=== PATIENT | female | born 2000 | race Caucasian/White ===

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

== ENCOUNTER 2018-11-07 02:15 | Emergency (ER) | payer BC ==
--- NOTE | 2018-11-07 02:33 | ED ---
General Adult HPI - General Source: patient, RN notes reviewed Mode of arrival: ambulatory Limitations: physical limitation <Alexys Rosales - Last Filed: 11/07/18 03:27> <Nicolette Gupta - Last Filed: 11/07/18 04:17> - General Chief complaint: Extremity Injury, Upper Stated complaint: finger injury Time Seen by Provider: 11/07/18 02:23 - History of Present Illness Initial comments: 17-year-old female presents to the emergency department for a chief complaint of right hand injury. Patient states about one hour prior to arrival she slammed her hand in a car door. Patient states she is up-to-date on tetanus. States her hand hurts most in the right second digit. Denies any other injuries.Patient has no other complaints at this time including shortness of breath, chest pain, abdominal pain, nausea or vomiting, headache, or visual changes. (Alexys Rosales) - Related Data Home Medications Medication Instructions Recorded Confirmed No Known Home Medications 10/21/16 11/07/18 Allergies Allergy/AdvReac Type Severity Reaction Status Date / Time nickel Allergy Rash/Hives Verified 11/07/18 02:22 Review of Systems ROS Other: All systems not noted in ROS Statement are negative. <Alexys Rosales - Last Filed: 11/07/18 03:27> ROS Other: All systems not noted in ROS Statement are negative. <Nicolette Gupta P - Last Filed: 11/07/18 04:17> ROS Statement: Those systems with pertinent positive or pertinent negative responses have been documented in the HPI. 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 Absent: scleral icterus, conjunctival injection, periorbital swelling ENT exam: Present: normal exam, mucous membranes moist Neck exam: Present: normal inspection, full ROM. Absent: tenderness, meningismus, lymphadenopathy Respiratory exam: Present: normal lung sounds bilaterally. Absent: respiratory distress, wheezes, rales, rhonchi, stridor Cardiovascular Exam: Present: regular rate, normal rhythm, normal heart sounds. Absent: systolic murmur, diastolic murmur, rubs, gallop, clicks Extremities exam: Present: full ROM (of all digits in the right hand), normal capillary refill (cap refill < 2 seconds, radial pulse 2+), other (laceration on dorsal right 2nd prox phalanx). Absent: tenderness, pedal edema, joint swelling, calf tenderness Neurological exam: Present: alert, oriented X3, CN II-XII intact Psychiatric exam: Present: normal affect, normal mood <Alexys Rosales P - Last Filed: 11/07/18 03:27> Course Vital Signs 11/07/18 11/07/18 02:16 03:47 Temperature 97.8 F 97.5 F L Pulse Rate 88 62 Respiratory 18 17 Rate Blood Pressure 125/88 130/89 O2 Sat by Pulse 98 98 Oximetry Procedures - Laceration Laceration #1 Consent Obtained: verbal consent Indication: laceration Site: hand Size (cm): 3 Description: flap Depth: simple, single layer Anesthetic Used: benzocaine 0.25%, lidocaine 1% Amount (mls): 3 Pre-repair: wound explored, irrigated extensively (with NS) Type of Sutures: nylon Size of Sutures: 5-0 Number of Sutures: 6 Technique: simple, interrupted Patient Tolerated Procedure: well, no complications <Alexys Rosales P - Last Filed: 11/07/18 03:27> Medical Decision Making <Alexys Rosales P - Last Filed: 11/07/18 03:27> <Nicolette Gupta P - Last Filed: 11/07/18 04:17> - Medical Decision Making 17-year-old female presents to the emergency department for a chief complaint of right hand pain. Patient close her hand in a door. Patient has a flap-like laceration over the right second finger dorsal proximal phalanx. This was cleaned thoroughly and repaired. Patient up-to-date on tetanus. X-ray of the right hand is negative. Although I did repair this laceration I discussed with the flap-like component there may be difficulty hearing. Discussed returning here in 7-10 days to have sutures removed. Discussed following up with primary care in 1-2 days as well. (Alexys Rosales) I personally saw and examined the patient. I reviewed and agree with the mid- level provider findings including all diagnostic interpretations and treatment plans as written unless otherwise stated. (Nicolette Gupta) Disposition Is patient prescribed a controlled substance at d/c from ED?: No Time of Disposition: 03:34 <Alexys Rosales P - Last Filed: 11/07/18 03:27> <Nicolette Gupta - Last Filed: 11/07/18 04:17> Clinical Impression: Hand contusion, Laceration Disposition: HOME SELF-CARE Condition: Good Instructions (If sedation given, give patient instructions): Care For Your Stitches (ED), Laceration (ED) Additional Instructions: Please keep the area clean. Monitor for signs of infection such as spreading or streaking redness, drainage, or fever and return if this occurs. Return if he notices any other worsening symptoms. He may return to the emergency department in 7-10 days to have sutures removed. Otherwise follow-up with primary care in 1-2 days. Referrals: Tami Freire MD [REFERRING] - 1-2 days
--- NOTE | 2018-11-07 02:49 | XR ---
EXAM: XR Right Hand Complete, 3 or More Views CLINICAL HISTORY: Trauma to the hand. TECHNIQUE: Frontal, lateral and oblique views of the right hand. COMPARISON: No relevant prior studies available. FINDINGS: Bones/joints: Unremarkable. No acute fracture. No dislocation. Soft tissues: Questionable soft tissue irregularity involving the dorsal aspect of the proximal right second digit. No radiopaque foreign body. IMPRESSION: Questionable soft tissue irregularity involving the dorsal aspect of the proximal right second digit. No radiopaque foreign body or acute osseous traumatic injury identified.
[2018-11-07 03:49] VITALS: BP 130/89; PULSE 62; RESP 17; TEMP 97.5
== END 2018-11-07 03:49 | disposition home or self-care (01) ==
LOC: EC 02:15
DX: S61.411A Laceration without foreign body of right hand, initial encounter (principal); F17.200 Nicotine dependence, unspecified, uncomplicated; Z91.09 Other allergy status, other than to drugs and biological substances; Z88.8 Allergy status to other drugs, medicaments and biological substances; W23.0XXA Caught, crushed, jammed, or pinched between moving objects, initial encounter
CPT/HCPCS: 12002; 99283

== ENCOUNTER 2019-08-17 16:36 | Observation (INO) | payer BC ==
[2019-08-17] MEDS ORDERED: SODIUM CHLORIDE 0.9% 500 ML 500 ML IV STA (17:10)
[2019-08-17] MEDS ORDERED: SODIUM CHLORIDE 0.9% 1,000 ML IV STA (17:10)
--- NOTE | 2019-08-17 17:15 | ED ---
Overdose HPI - General Chief Complaint: Overdose Stated Complaint: Possible Overdose Time Seen by Provider: 08/17/19 16:44 Source: patient, EMS, RN notes reviewed, old records reviewed Mode of arrival: EMS Limitations: no limitations, altered mental status - History of Present Illness Initial Comments: This is a 18-year-old female poor historian secondary to drug ingestion unsure of ingestion she was admitted to Xanax use and hasn't strong history of drug and alcohol abuse inpatient hospitalizations for overdose as well as rehabilitation. Mother believes the patient is suicidal, patient refuses to admit the staff she does tell her family and friends that she has MD Complaint: intentional overdose -: unknown Intent: unwilling to say How Overdose Was Discovered: family/friend present at time Context: Intentional Overdose: drug/ETOH problems Context: Accidental Overdose: wanted to get high Associated Symptoms: depression Treatments Prior to Arrival: none - Related Data Previous Rx's Medication Instructions Recorded FLUoxetine HCL [PROzac] 20 mg PO DAILY #30 cap 08/23/19 QUEtiapine [SEROquel] 150 mg PO HS #30 tab 08/23/19 busPIRone HCl [Buspar] 20 mg PO BID #60 tab 08/23/19 levETIRAcetam [Keppra] 500 mg PO BID #60 tab 08/23/19 traZODone HCL [Desyrel] 50 mg PO HS #30 tab 08/23/19 Allergies Allergy/AdvReac Type Severity Reaction Status Date / Time nickel Allergy Rash/Hives Verified 08/19/19 18:11 Review of Systems ROS Statement: Those systems with pertinent positive or pertinent negative responses have been documented in the HPI. ROS Other: All systems not noted in ROS Statement are negative. Past Medical History Past Medical History: No Reported History Additional Past Medical History / Comment(s): used to be IVDA History of Any Multi-Drug Resistant Organisms: None Reported Past Surgical History: No Surgical Hx Reported Past Psychological History: Anxiety, Depression Smoking Status: Current every day smoker Past Alcohol Use History: None Reported Past Drug Use History: Cocaine, Heroin, Methamphetamine - Past Family History Mother Family Medical History: No Reported History General Exam Limitations: no limitations General appearance: alert, in no apparent distress Head exam: Present: atraumatic, normocephalic, normal inspection Eye exam: Present: normal appearance, PERRL, EOMI. Absent: scleral icterus, conjunctival injection, periorbital swelling ENT exam: Present: normal exam, mucous membranes moist Neck exam: Present: normal inspection. Absent: tenderness, meningismus, lymphadenopathy Respiratory exam: Present: normal lung sounds bilaterally. Absent: respiratory distress, wheezes, rales, rhonchi, stridor Cardiovascular Exam: Present: regular rate, normal rhythm, normal heart sounds. Absent: systolic murmur, diastolic murmur, rubs, gallop, clicks GI/Abdominal exam: Present: soft, normal bowel sounds. Absent: distended, tenderness, guarding, rebound, rigid Extremities exam: Present: normal inspection, full ROM, normal capillary refill. Absent: tenderness, pedal edema, joint swelling, calf tenderness Back exam: Present: normal inspection Neurological exam: Present: alert, oriented X3, CN II-XII intact Psychiatric exam: Present: normal affect, normal mood Skin exam: Present: warm, dry, intact, normal color. Absent: rash Course Vital Signs 08/17/19 08/17/19 08/17/19 16:41 18:35 20:43 Temperature 98.0 F 98.0 F Pulse Rate 80 70 67 Respiratory 17 18 18 Rate Blood Pressure 112/102 117/76 129/87 O2 Sat by Pulse 100 99 100 Oximetry - Reevaluation(s) Reevaluation #1: Medical records reviewed Patient's symptoms not improved, spoke with poison control with no significant recommendations Discussed results the patient family, questions are answered Family concerned regarding patient's suicidal tendencies and significant sleepiness and somnolence Medical Decision Making - Medical Decision Making 18 female DF for evaluation regards to overdose and psychiatric symptoms. Patient is suicidal and took medication likely and suicide attempt today. Psychiatric as well as persistent evaluation regarding overdose - Lab Data Result diagrams: 08/17/19 17:05 08/17/19 17:05 Lab Results 08/17/19 08/17/19 08/17/19 Range/Units 07:30 07:30 17:05 WBC (4.0-11.0) k/uL RBC (3.80-5.40) m/uL Hgb (11.4-16.0) gm/dL Hct (34.0-46.0) % MCV (80.0-100.0) fL MCH (25.0-35.0) pg MCHC (31.0-37.0) g/dL RDW (11.5-15.5) % Plt Count (150-450) k/uL Neutrophils % % Lymphocytes % % Monocytes % % Eosinophils % % Basophils % % Neutrophils # (1.3-7.7) k/uL Lymphocytes # (1.0-4.8) k/uL Monocytes # (0-1.0) k/uL Eosinophils # (0-0.7) k/uL Basophils # (0-0.2) k/uL Sodium 137 (137-145) mmol/L Potassium 4.2 (3.5-5.1) mmol/L Chloride 99 (98-107) mmol/L Carbon Dioxide 30 (22-30) mmol/L Anion Gap 8 mmol/L BUN 17 (7-17) mg/dL Creatinine 0.81 (0.52-1.04) mg/dL Est GFR (CKD-EPI)AfAm >90 (>60 ml/min/1.73 sqM) Est GFR (CKD-EPI)NonAf >90 (>60 ml/min/1.73 sqM) Glucose 78 (74-99) mg/dL Plasma Lactic Acid Javi (0.7-2.0) mmol/L Calcium 9.3 (8.4-10.2) mg/dL Phosphorus 4.8 H (2.5-4.5) mg/dL Magnesium 2.1 (1.6-2.3) mg/dL Total Bilirubin 0.5 (0.2-1.3) mg/dL AST 26 (14-36) U/L ALT 14 (4-34) U/L Alkaline Phosphatase 93 (38-126) U/L Creatine Kinase 160 H (30-135) U/L CK-MB (CK-2) (0.0-2.4) ng/mL Total Protein 7.3 (6.3-8.2) g/dL Albumin 4.6 (3.5-5.0) g/dL Lipase 85 (23-300) U/L Urine HCG, Qual Not Detected (Not Detectd) Salicylates <1.0 mg/dL Urine Opiates Screen Not Detected (NotDetected) Ur Oxycodone Screen Not Detected (NotDetected) Urine Methadone Screen Not Detected (NotDetected) Ur Propoxyphene Screen Not Detected (NotDetected) Acetaminophen <10.0 ug/mL Ur Barbiturates Screen Not Detected (NotDetected) U Tricyclic Antidepress Not Detected (NotDetected) Ur Phencyclidine Scrn Not Detected (NotDetected) Ur Amphetamines Screen Detected H (NotDetected) U Methamphetamines Scrn Detected H (NotDetected) U Benzodiazepines Scrn Detected H (NotDetected) Urine Cocaine Screen Not Detected (NotDetected) U Marijuana (THC) Screen Not Detected (NotDetected) Serum Alcohol <10 mg/dL 08/17/19 08/17/19 08/17/19 Range/Units 17:05 17:05 17:05 WBC 4.7 (4.0-11.0) k/uL RBC 4.53 (3.80-5.40) m/uL Hgb 12.7 (11.4-16.0) gm/dL Hct 38.0 (34.0-46.0) % MCV 83.7 (80.0-100.0) fL MCH 28.1 (25.0-35.0) pg MCHC 33.5 (31.0-37.0) g/dL RDW 13.7 (11.5-15.5) % Plt Count 175 (150-450) k/uL Neutrophils % 51 % Lymphocytes % 37 % Monocytes % 7 % Eosinophils % 2 % Basophils % 1 % Neutrophils # 2.4 (1.3-7.7) k/uL Lymphocytes # 1.7 (1.0-4.8) k/uL Monocytes # 0.3 (0-1.0) k/uL Eosinophils # 0.1 (0-0.7) k/uL Basophils # 0.0 (0-0.2) k/uL Sodium (137-145) mmol/L Potassium (3.5-5.1) mmol/L Chloride (98-107) mmol/L Carbon Dioxide (22-30) mmol/L Anion Gap mmol/L BUN (7-17) mg/dL Creatinine (0.52-1.04) mg/dL Est GFR (CKD-EPI)AfAm (>60 ml/min/1.73 sqM) Est GFR (CKD-EPI)NonAf (>60 ml/min/1.73 sqM) Glucose (74-99) mg/dL Plasma Lactic Acid Javi 0.7 (0.7-2.0) mmol/L Calcium (8.4-10.2) mg/dL Phosphorus (2.5-4.5) mg/dL Magnesium (1.6-2.3) mg/dL Total Bilirubin (0.2-1.3) mg/dL AST (14-36) U/L ALT (4-34) U/L Alkaline Phosphatase (38-126) U/L Creatine Kinase (30-135) U/L CK-MB (CK-2) 2.2 (0.0-2.4) ng/mL Total Protein (6.3-8.2) g/dL Albumin (3.5-5.0) g/dL Lipase (23-300) U/L Urine HCG, Qual (Not Detectd) Salicylates mg/dL Urine Opiates Screen (NotDetected) Ur Oxycodone Screen (NotDetected) Urine Methadone Screen (NotDetected) Ur Propoxyphene Screen (NotDetected) Acetaminophen ug/mL Ur Barbiturates Screen (NotDetected) U Tricyclic Antidepress (NotDetected) Ur Phencyclidine Scrn (NotDetected) Ur Amphetamines Screen (NotDetected) U Methamphetamines Scrn (NotDetected) U Benzodiazepines Scrn (NotDetected) Urine Cocaine Screen (NotDetected) U Marijuana (THC) Screen (NotDetected) Serum Alcohol mg/dL - EKG Data -: EKG Interpreted by Me (EKG shows sinus rhythm rate of 66, here 140, QRS 100, QTC 410) Disposition Clinical Impression: Drug overdose, Poisoning by opiates and related narcotics, other, Suicide attempt Disposition: ADMITTED IP TO THIS [facility] Condition: Fair Is patient prescribed a controlled substance at d/c from ED?: No
[2019-08-17 17:36] LABS: ALT 14 U/L (4-34); AST 26 U/L (14-36); Acetaminophen <10.0 ug/mL; African American GFR (CKD) >90 (>60 ml/min/1.73 sqM); Albumin 4.6 g/dL (3.5-5.0); Alcohol <10 mg/dL; Alkaline Phosphatase 93 U/L (38-126); Anion Gap 8 mmol/L; Blood Urea Nitrogen 17 mg/dL (7-17); Calcium 9.3 mg/dL (8.4-10.2); Carbon Dioxide 30 mmol/L (22-30); Chloride 99 mmol/L (98-107); Creatine Kinase 160 U/L (30-135); Glucose 78 mg/dL (74-99); Magnesium 2.1 mg/dL (1.6-2.3); Non-African American GFR(CKD) >90 (>60 ml/min/1.73 sqM); Phosphorus 4.8 mg/dL (2.5-4.5); Potassium 4.2 mmol/L (3.5-5.1); Salicylate <1.0 mg/dL; Sodium 137 mmol/L (137-145); Total Bilirubin 0.5 mg/dL (0.2-1.3); Total Protein 7.3 g/dL (6.3-8.2)
[2019-08-17 17:45] LABS: Basophils % (A) 1 %; Eosinophils # (A) 0.1 k/uL (0-0.7); Eosinophils % (A) 2 %; HGB 12.7 gm/dL (11.4-16.0); Lymphocytes # (A) 1.7 k/uL (1.0-4.8); Lymphocytes % (A) 37 %; MCH 28.1 pg (25.0-35.0); MCHC 33.5 g/dL (31.0-37.0); MCV 83.7 fL (80.0-100.0); Mean Platelet Volume 8.2; Monocytes # (A) 0.3 k/uL (0-1.0); Monocytes % (A) 7 %; Neutrophils # (A) 2.4 k/uL (1.3-7.7); Neutrophils % (A) 51 %; Platelet Count 175 k/uL (150-450); RBC 4.53 m/uL (3.80-5.40); RDW 13.7 % (11.5-15.5); WBC 4.7 k/uL (4.0-11.0)
[2019-08-17] MEDS ORDERED: THIAMINE 100 MG/ML 2 ML VIAL IM STA (20:17)
[2019-08-17] MEDS ORDERED: LORazepam 2 MG/ML INJ IV PRN ×2 (20:17)
[2019-08-17] MEDS: LORazepam 2 MG/ML INJ IV PRN (22:54)
[2019-08-17] MEDS: THIAMINE 100 MG TAB PO SCH (23:23)
[2019-08-18] MEDS: LORazepam 2 MG/ML INJ IV PRN ×2 (00:53→17:55)
[2019-08-18] MEDS: THIAMINE 100 MG TAB PO SCH ×2 (07:34→17:25)
[2019-08-18 08:15] LABS: Amphetamine Screen,Urine Detected (NotDetected); Barbiturate Screen,Urine Not Detected (NotDetected); Benzodiazepines Screen,Urine Detected (NotDetected); Cocaine Screen,Urine Not Detected (NotDetected); Methadone Screen, Urine Not Detected (NotDetected); Opiate Screen,Urine Not Detected (NotDetected); Oxycodone Screen, Urine Not Detected (NotDetected); Phencyclidine Screen,Urine Not Detected (NotDetected); Tricyclic Antidepressant,Urine Not Detected (NotDetected); Urn Cannabinoid Scrn Not Detected (NotDetected)
[2019-08-18 08:20] LABS: Appearance,Urine Slightly Cloudy (Clear); Bacteria,Urine Rare /hpf; Color,Urine Yellow; Hyaline Casts,Urine 1 /lpf (0-2); Mucus,Urine Moderate /hpf; RBC,Urine 3 /hpf (0-5); Specific Gravity,Urine 1.025 (1.001-1.035); Squamous Epithelial Cell,Urine 4 /hpf (0-4); WBC,Urine 44 /hpf (0-5)
[2019-08-18 08:21] LABS: Glucose,Urine (UA) Negative (Negative); Protein,Urine Negative (Negative)
[2019-08-18 08:27] LABS: Bilirubin,Urine Negative (Negative); Blood,Urine Negative (Negative); Ketones,Urine Negative (Negative); Nitrite,Urine Negative (Negative); Urobilinogen,Urine <2.0 mg/dL (<2.0)
[2019-08-18 08:28] LABS: Leukocyte Esterase,Urine Large (Negative)
[2019-08-18] MEDS: levETIRAcetam 500 MG TAB PO SCH (09:39)
[2019-08-18] MEDS: FLUoxetine HCL 20 MG CAP PO SCH (09:40)
[2019-08-18] MEDS: busPIRone HCl 10 MG TAB PO SCH (09:40)
[2019-08-18 10:19] VITALS: BMI 18.8
--- NOTE | 2019-08-18 19:49 | HP ---
HISTORY AND PHYSICAL CHIEF COMPLAINT: Polysubstance overdose and suicide attempt. HISTORY OF PRESENT ILLNESS: This lady was brought to the emergency room after apparently overdosing on heroin, methamphetamine, and Xanax. She has a long-standing history of alcohol abuse and inpatient hospitalizations as well. She is brought by her mother who was willing to commit her. REVIEW OF SYSTEMS: Review of systems is not obtainable due to lack of cooperation. She has apparently been healthy otherwise. Past medical history, family history, personal and social histories are unremarkable. She is certainly under mental health management judging from the medications that she is on which include Keppra, Prozac, Seroquel. She denies surgery or any allergies. She smokes a pack of cigarettes a day. PHYSICAL EXAMINATION: Blood pressure 112/102 with a pulse of 80, respirations of 17, and she is afebrile. In general, she appeared to be well developed, well nourished, in no acute distress. Skin color is normal. Skin is warm, dry. Lymph nodes are not enlarged. Head, ears, eyes, nose, mouth, and throat were normal. Neck veins not distended. Thyroid is not enlarged. CHEST: Clear. Cardiac exam is normal. Abdomen is soft, nontender. Extremities are normal. Neurologically, she is intact. IMPRESSION: 1. Multiple substance abuse. 2. Alcoholism. 3. Multiple drug ingestion and overdose. 4. Suicidal personality. PLAN: 1. Bed rest. 2. IV fluids. 3. Suicide precautions. 4. Psychiatry consult. SUMMER / LUZ: [id number] /
--- NOTE | 2019-08-18 19:49 | PN ---
PROGRESS NOTE CHIEF COMPLAINT: Multiple drug ingestion overdose and suicide attempt. HISTORY OF PRESENT ILLNESS: This lady is being quite uncooperative. She is fully awake and alert. She is making certain demands and is refusing to cooperate. She will not be seen by Psychiatry until tomorrow. PHYSICAL EXAMINATION: Chest is clear. Cardiac exam is normal. Abdomen is soft, nontender. IMPRESSION: 1. Multiple substance abuse. 2. Alcoholism. 3. Drug overdose. 4. Suicidal personality. 5. Possible bipolar depression. PLAN: Continue with suicide precautions with a sitter. MMODL / IJN: [id number] /
[2019-08-18] MEDS ORDERED: QUEtiapine 50 MG TAB PO SCH (21:00)
[2019-08-18] MEDS ORDERED: traZODone HCL 50 MG TAB PO SCH (21:00)
[2019-08-19] MEDS: busPIRone HCl 10 MG TAB PO SCH ×2 (01:03→08:22)
[2019-08-19] MEDS: levETIRAcetam 500 MG TAB PO SCH ×2 (01:04→08:19)
[2019-08-19 07:53] VITALS: RESP 16; TEMP 97.8
[2019-08-19] MEDS: THIAMINE 100 MG TAB PO SCH ×2 (08:17→16:42)
[2019-08-19] MEDS: FLUoxetine HCL 20 MG CAP PO SCH (08:22)
[2019-08-19 16:20] VITALS: BP 97/57; PULSE 92
--- NOTE | 2019-08-20 07:36 | DS ---
DISCHARGE SUMMARY CHIEF COMPLAINT: Multiple drug ingestion overdose with suicidal intent. HISTORY OF PRESENT ILLNESS AND PHYSICAL EXAM: Details of this lady's history and physical can be found in the initial workup. COURSE IN THE HOSPITAL: After admission, she was placed on bedrest, started on intravenous fluids and was on suicide precautions. She became very uncooperative, unruly, noncompliant and violent. She is very uncooperative. She was eventually seen by Psychiatry and moved to the psych unit on . FINAL DIAGNOSES: 1. Multiple substance ingestion and overdose. 2. Major depression. 3. Suicidal personality. 4. History of multiple drug abuse. OPERATIONS: None. CONSULTATIONS: Psychiatry. MMODL / IJN: [id number] /
== END 2019-08-19 17:15 ==
LOC: EEVIPCON 16:36 → EC 16:36 → 6NMEDSUR 20:17
PROVIDERS: ADMIT Family Medicine; ATTEND Family Medicine
DX: T40.2X2A Poisoning by other opioids, intentional self-harm, initial encounter (principal); F17.210 Nicotine dependence, cigarettes, uncomplicated; F32.9 Major depressive disorder, single episode, unspecified; F41.9 Anxiety disorder, unspecified; F10.20 Alcohol dependence, uncomplicated; Z79.899 Other long term (current) drug therapy; Z91.048 Other nonmedicinal substance allergy status
CPT/HCPCS: 96376; 96374; 82075; 96361; 99285; 36415; 93005; 80053; 82550; 82553; 83605; 83690; 83735; 84100; 85025; 81001; 81025; 80306; 83520; 80329; 80320; 87086; G0378 ×3; J2060 ×2

== ENCOUNTER 2019-08-19 16:57 | Inpatient (IN) | payer BC ==
[2019-08-19] MEDS ORDERED: ACETAMINOPHEN TAB 325 MG TAB PO PRN (17:19)
[2019-08-19] MEDS ORDERED: ZIPRASIDONE 20 MG VIAL IM PRN (17:19)
[2019-08-19] MEDS ORDERED: MAGNESIUM HYDROXIDE 2,400 MG/10 ML CUP PO PRN (17:19)
[2019-08-19] MEDS ORDERED: MAG HYDROX/AL HYDROX/SIMETH 30 ML CUP PO PRN (17:19)
[2019-08-19] MEDS ORDERED: LORazepam 1 MG TAB PO PRN (17:19)
[2019-08-19] MEDS ORDERED: LORazepam 2 MG/ML INJ IM PRN (17:23)
[2019-08-19] MEDS: QUEtiapine 100 MG TAB PO SCH (21:52)
[2019-08-19] MEDS: busPIRone HCl 10 MG TAB PO SCH (21:53)
[2019-08-19] MEDS: THIAMINE 100 MG TAB PO SCH (21:53)
[2019-08-19] MEDS: levETIRAcetam 500 MG TAB PO SCH (21:54)
[2019-08-19] MEDS: traZODone HCL 50 MG TAB PO SCH (21:54)
[2019-08-20] MEDS: levETIRAcetam 500 MG TAB PO SCH ×2 (09:22→21:23)
[2019-08-20] MEDS: FLUoxetine HCL 20 MG CAP PO SCH (09:22)
[2019-08-20] MEDS: THIAMINE 100 MG TAB PO SCH ×2 (09:22→18:46)
[2019-08-20] MEDS: busPIRone HCl 10 MG TAB PO SCH ×2 (09:22→21:22)
--- NOTE | 2019-08-20 12:54 | CONS ---
CONSULTATION CHIEF COMPLAINT: Major depression with suicidal personality and multiple substance abuse. HISTORY OF PRESENT ILLNESS: Details of this 18-year-old history can be found in documents accompanying her from the medical floor, where she was admitted with an overdose. She became very uncooperative, aggressive and unruly and had to be restrained. She has a long-standing history of polysubstance abuse including alcohol. REVIEW OF SYSTEMS: At present time, she is not having any problems neurologically or having any headaches, visual problems, shortness of breath, chest pain, abdominal pain, urinary complaints, etc. Past medical history, family history and personal and social histories can all be found in her documents accompanying her from the medical floor. PHYSICAL EXAMINATION: Blood pressure is 119/64 with a pulse of 83, respirations of 27, and she is afebrile. GENERAL: She appeared to be slender, well developed, well nourished, in no acute distress. She seems cooperative and more calm than she was on the floor. Head, ears, eyes, nose, mouth, and throat are normal. Neck veins are not distended. Chest is clear. Cardiac exam is normal. Abdomen is soft, nontender. Extremities are normal. Neurologically, she is intact. IMPRESSION: 1. Major depression. 2. Possible borderline personality. 3. Multiple substance abuse and an addiction. 4. History of overdose including heroin and methamphetamine. RECOMMENDATIONS: None at this time. Medically she is stable. MMODL / IJN: [id number] /
--- NOTE | 2019-08-20 14:40 | P.HP ---
Psychiatric H&P - . H&P Date: 08/20/19 History & Physical: IDENTIFYING DATA: The patient is a 18-year-old single female admitted to the psychiatric unit involuntarily. Her mother documented in a petition that the patient made suicidal statements and intentionally overdosed. HISTORY OF PRESENT ILLNESS: I reviewed the medical record and interviewed the patient. She acknowledged her use of heroin, cocaine and methamphetamine use. She also admitted of having had several drug overdoses. However, she denied that she had overdosed intentionally or that she made suicidal statements. She denied that she had been depressed, hopeless or helpless. She would not give consent for us to speak with her mother about her history. She denied persistent and uncontrollable anxiety. She denied obsessions or compulsions. She denied such psychotic symptoms as hallucinations, paranoia or confusion. PAST PSYCHIATRIC HISTORY: She denied contact with mental health professionals. She denied prior psychiatric hospitalizations. She denied history of suicide attempts or gestures. PAST MEDICAL HISTORY: She denied history of major medical problems. ALLERGIES: NO KNOWN DRUG ALLERGIES. SUBSTANCE USE HISTORY: She has been using heroin for the last "5 or 6 years". She injects approximately $60 worth of heroin per day. She is unemployed and has no income and was evasive about how she forced heroin. When asked directly she admitted that she exchanges sex for drugs in sex for money to buy drugs. She also uses methamphetamine and cocaine. She has attended two substance abuse treatment programs; 1 in [place] called [facility] and the other in [place] called [facility]. She achieved no substantial abstinence after discharge from these programs. She has not been in a methadone substitution program and is not been prescribed Suboxone for the treatment of her opiate a ddiction. She did not provide a urine sample for urine drug screen. FAMILY PSYCHIATRIC/SUBSTANCE USE HISTORY: Her sister has history of depression and anxiety LEGAL HISTORY: She is currently wearing a tether for violation of probation. She has had a DUI citations, custodial time but has not been in [facility]. SOCIAL HISTORY: She is born and raised in an intact family. She has 1 brother and sister. Her father is currently incarcerated for 2 counts of criminal sexual contact. She lives intermittently with her mother. She is quit school in the 12th grade and did not obtain her GED. She is unemployed and has no income. She is single and has no children. MENTAL STATUS EXAM: She presented as a tall disheveled appearing 18-year-old female who was irritable and minimally cooperative. She had a tether on her right ankle. She made eye contact and appeared to attend to the interview. She had bright red hair but no prominent physical abnormalities. She had a inpatient facial expression. She was alert and oriented to person, place and time. She showed no abnormality of psychomotor activity. She had no abnormal movements. Her speech was spontaneous with normal rate, rhythm and volume. She was dysphoric but was not inappropriate. She denied suicidal ideation or wishes. She denied homicidal ideation. She denied feeling hopeless, helpless or worthless. She did not express ideas reference, paranoid ideation or delusions. Her thinking was concrete but her associations were coherent and logical. She did not demonstrate clang associations, perseverations, neologisms or blocking. She denied hallucinations did not appear to be responding to internal stimuli. Global impression of intellect is average. She is aware of her substance use problem STRENGTHS: And concerned family, good physical health WEAKNESSES: Lack of income, chronic substance use problems, legal problems IMPRESSION: She is 18-year-old single female who has history of an opiate use, cocaine and methamphetamine use disorder. She presents hospital involuntarily with a petition completed her mother alleging as that she has made suicidal statements and intentionally overdosed on heroin. She is denying depression or suicidal ideation. She denied history of suicide attempts or gestures. She acknowledged her history of drug use and admitted to having had several unintentional drug overdoses. She should be treated inpatient basis until we clarify whether she poses a suicidal risk. PRINCIPLE DIAGNOSIS: Suicidal ideation, rule out suicide attempt, opiate use disorder severe, cocaine use disorder severe, methamphetamine use disorder severe, rule out opiate withdrawal, rule out a depressive disorder RECOMMENDATION: Admitted to psychiatric unit. Completed the second clinical service and proceed with involuntary hospitalization. Obtain collateral information from family once we have consent. Safety precautions. Consult medicine for initial physical exam and medical history. farmworker poultry completed initial psychosocial assessment and coordinate discharge and aftercare. Symptomatic treatment of opiate withdrawal symptoms. Evaluate the need for treatment with an intake depressant. Encourage participation in therapeutic groups and activities. Evaluate clinical status response to treatment daily basis. Allergies Allergy/AdvReac Type Severity Reaction Status Date / Time nickel Allergy Rash/Hives Verified 08/19/19 18:11 Vital Signs Temp 98.1 F 08/20/19 06:24 Pulse 55 L 08/20/19 06:24 Resp 14 08/20/19 06:24 BP 91/50 08/20/19 06:24 Pulse Ox 100 08/19/19 16:57 Intake & Output 08/19/19 08/20/19 08/20/19 18:59 06:59 18:59 Weight 63.6 kg Laboratory Last Values Triglycerides 39 mg/dL (<150) 08/20/19 07:35 Cholesterol 123 mg/dL (<200) 08/20/19 07:35 LDL Cholesterol, Calc 53 mg/dL (0-99) 08/20/19 07:35 HDL Cholesterol 62 mg/dL (40-60) H 08/20/19 07:35 TSH 0.338 mIU/L (0.465-4.680) L 08/20/19 07:35 Free T4 1.01 ng/dL (0.78-2.19) 08/20/19 07:35 08/20/19 14:24
[2019-08-20 19:16] LABS: Hemoglobin A1C 4.8 % (4.0-6.0)
[2019-08-20] MEDS: traZODone HCL 50 MG TAB PO SCH (21:23)
[2019-08-20] MEDS: QUEtiapine 100 MG TAB PO SCH (21:23)
[2019-08-21] MEDS: levETIRAcetam 500 MG TAB PO SCH ×2 (08:04→21:55)
[2019-08-21] MEDS: busPIRone HCl 10 MG TAB PO SCH ×2 (08:04→21:57)
[2019-08-21] MEDS: FLUoxetine HCL 20 MG CAP PO SCH (08:05)
[2019-08-21] MEDS: THIAMINE 100 MG TAB PO SCH ×2 (08:05→17:36)
--- NOTE | 2019-08-21 14:37 | P.PN ---
Subjective Progress Note Date: 08/21/19 Principal diagnosis: Unspecified depressive disorder, rule out opiate induced mood disorder, rule out major depressive disorder, opiate use disorder, methamphetamine use disorder, cocaine use disorder I reviewed the medical record, interviewed the patient and discuss her treatment and treatment plan during team meeting. I also spoke with her mother. Her mother is afraid Sissy will kill herself. She felt that she "had to do something" because she believes that Sissy will eventually kill herself. She talked about the overdoses including an overdose resulted in ICU admission. She alleged that Sissy has told her sister that she is intentionally overdose to kill herself. Sissy denied that she had intentionally overdosed. She believes that the overdoses occurred because she "discharge" her tolerance to marijuana. She denied that she told her mother that she wanted to or that she had overdosed intentionally to end her life. She would not deny that she told her sister about her suicidal thoughts. She is denying opiate withdrawal symptoms. She denies feeling depressed or anxious. She plans to reenter residential substance abuse treatment. Objective - Vital Signs Vital signs: Vital Signs Temp 98.1 F 08/20/19 06:24 Pulse 55 L 08/20/19 06:24 Resp 14 08/20/19 06:24 BP 91/50 08/20/19 06:24 Pulse Ox 100 08/19/19 16:57 - Exam She presented as a casually groomed tall woman bright red hair. She made eye contact and attempted to interview. She had no distinguishing features or prominent physical abnormalities. She had a blunted but bright facial expression. She was alert and oriented to person, place and time. She showed slight psychomotor retardation but no abnormal movements. Her speech was spontaneous with normal rate, rhythm and volume. Affect was blunted but stable and appropriate. She denied suicidal ideation or wishes. She denied homicidal ideation. She denied feeling hopeless, helpless or worthless. She ruminated about the circumstances that led to this hospitalization and the allegations that she was "suicidal". She denied express ideas reference, paranoid ideation or delusions. Her thinking was abstract and associations were coherent and logical. Assessment and Plan Assessment: She also has a severe substance use problem but I am unable to determine with her the overdoses were intentional. We'll continue with plan for involuntary hospitalization. There is no indication for psychotropic medications at this time there is no indication for symptomatic treatment of opiate withdrawal symptoms. Plan: She is to meet with her defense attorney regarding the involuntary admission process. She plans to defer. Continue safety precautions. Evaluate for the treatment for mood, anxiety or symptoms or opioid withdrawal.
[2019-08-21] MEDS: QUEtiapine 100 MG TAB PO SCH (21:56)
[2019-08-21] MEDS: traZODone HCL 50 MG TAB PO SCH (21:56)
[2019-08-22] MEDS: FLUoxetine HCL 20 MG CAP PO SCH (09:29)
[2019-08-22] MEDS: levETIRAcetam 500 MG TAB PO SCH ×2 (09:29→22:18)
[2019-08-22] MEDS: busPIRone HCl 10 MG TAB PO SCH ×2 (09:29→22:18)
[2019-08-22] MEDS: THIAMINE 100 MG TAB PO SCH ×2 (09:29→17:30)
--- NOTE | 2019-08-22 13:41 | P.PN ---
Subjective Progress Note Date: 08/22/19 Principal diagnosis: Unspecified depressive disorder, rule out opiate induced mood disorder, rule out major depressive disorder, opiate use disorder, methamphetamine use disorder, cocaine use disorder I reviewed the medical record, interviewed the patient and discuss her treatment and treatment plan during team meeting. She denied feeling depressed or having persistent and uncontrollable anxiety. She denied opiate withdrawal symptoms. She denied having thoughts of or suicide. She met with her state attorney and deferred the probate hearing. She was accepted to [facility] rehabilitation and they will arrange transportation for tomorrow at 12. Objective - Vital Signs Vital signs: Vital Signs Temp 98.3 F 08/22/19 06:54 Pulse 66 08/22/19 06:54 Resp 14 08/22/19 06:54 BP 106/61 08/22/19 06:54 Pulse Ox 100 08/19/19 16:57 - Exam She presented as a casually groomed tall woman bright red hair. She made eye contact and attempted to interview. She had no distinguishing features or prominent physical abnormalities. She had a blunted but bright facial expression. She was alert and oriented to person, place and time. She showed slight psychomotor retardation but no abnormal movements. Her speech was spontaneous with normal rate, rhythm and volume. Affect was blunted but stable and appropriate. She denied suicidal ideation or wishes. She denied homicidal ideation. She denied feeling hopeless, helpless or worthless. She did not express ideas reference, paranoid ideation or delusions. Her thinking was abstract and associations were coherent and logical. Assessment and Plan Assessment: she is withdrawn and participates in groups and therapeutic activities. However, she expressed no suicidal thoughts. She is denying symptoms of depression and has consented to treatment. Plan: Plan for discharge on 08/23/2021 a residential rehabilitation program. Continue current treatment and treatment plan.
[2019-08-22] MEDS: QUEtiapine 100 MG TAB PO SCH (22:18)
[2019-08-22] MEDS: traZODone HCL 50 MG TAB PO SCH (22:18)
[2019-08-23 07:09] VITALS: BP 107/56; PULSE 68; RESP 12; TEMP 99.1
[2019-08-23] MEDS: busPIRone HCl 10 MG TAB PO SCH (08:17)
[2019-08-23] MEDS: levETIRAcetam 500 MG TAB PO SCH (08:17)
[2019-08-23] MEDS: FLUoxetine HCL 20 MG CAP PO SCH (08:17)
[2019-08-23] MEDS: THIAMINE 100 MG TAB PO SCH (08:17)
--- NOTE | 2019-08-23 11:33 | P.DS ---
Providers Date of admission: 08/19/19 16:57 Attending physician: Rahul Felix MD Consults: 08/19/19 17:19 Consult Physician Routine Consulting Provider: Des Valenzuela Consult Reason/Comments: H&P and medical Do you want consulting provider notified?: Yes Primary care physician: Stated None - Discharge Diagnosis(es) (1) Depressive disorder Current Visit: Yes Status: Resolved Priority: Medium (2) Opioid use disorder, severe, dependence Current Visit: Yes Status: Chronic Priority: High (3) Methamphetamine use disorder, severe Current Visit: Yes Status: Chronic Priority: High (4) Cocaine use disorder, severe, dependence Current Visit: Yes Status: Chronic Priority: High Hospital Course: The patient is a 18-year-old single female who has a history of seizure disorder. She was admitted to the psychiatric unit involuntarily. Her mother documented in a petition that the patient made suicidal statements and intentionally overdosed. She acknowledged her use of heroin, cocaine and methamphetamine use. She also admitted of having had several drug overdoses. However, she denied that she had overdosed intentionally or that she made suicidal statements. She denied that she had been depressed, hopeless or helpless. She would not give consent for us to speak with her mother about her history. She denied persistent and uncontrollable anxiety. She denied obsessions or compulsions. She denied such psychotic symptoms as hallucinations, paranoia or confusion. She has been using heroin for the last "5 or 6 years". She injects approximately $60 worth of heroin per day. She is unemployed and has no income and was evasive about how she forced heroin. When asked directly she admitted that she exchanges sex for drugs in sex for money to buy drugs. She also uses methamphetamine and cocaine. She has attended two substance abuse treatment programs; 1 in [place] called [facility] and the other in [place] called [facility]. She achieved no substantial abstinence after discharge from these programs. She has not been in a methadone substitution program and is not been prescribed Suboxone for the treatment of her opiate addiction. She did not provide a urine sample for urine drug screen. We admitted her involuntarily to the psychiatric unit under the care of this bid writer. We completed the second clinical certificate and Sinemet at the petition and supporting documents appropriate card for involuntary hospitalization. I spoke with her mother on the telephone. Her mother described with long history of substance use problems and multiple drug overdo ses some of which were severe enough to require intensive care. Her mother expressed her frustration and concerns about her daughter's safety. Her mother alleged that she had made statements that she wished she were and allegedly told her sister that she had intentionally overdosed. The patient however denied that she had intentionally overdose or that she had suicidal intent or plan. We resumed her outpatient medications including BuSpar 20 mg twice a day, Prozac 20 mg daily, Keppra 500 mg by mouth twice a day, Seroquel 150 mg at bedtime and Desyrel 50 mg at bedtime. The seo consultant confectionery laboratory manager completed initial physical exam and medical history and did not diagnose major medical illness. She seldom participated in therapeutic groups and activities. She spent most of the short hospital stay in her room and did not interact with staff or peers. She met with an banking attorney and deferred the probate hearing. Social work assist her with obtaining residential substance abuse treatment. She was accepted to [facility] rehabilitation in [facility]. Time of discharge she presented as a casually groomed 18-year-old female who was pleasant on approach. She made eye contact and attended to interview. She had bright red hair but no physical abnormalities. She had a bright facial expression. She is alert and oriented to person, place and time. She showed no abnormality of psychomotor activity. Her speech was spontaneous with normal rate, rhythm and volume. Affect was stable and appropriate. She denied suicidal ideation, wishes or homicidal ideation. She denied feeling hopeless, helpless or worthless. She denied express ideas reference, paranoid ideation or delusions. Her thinking was abstract and associations are coherent and logical. She denied hallucinations and did not appear to be responding to internal stimuli. Plan - Discharge Summary Discharge Rx Participant: No New Discharge Prescriptions: New busPIRone HCl [Buspar] 20 mg PO BID #60 tab traZODone HCL [Desyrel] 50 mg PO HS #30 tab levETIRAcetam [Keppra] 500 mg PO BID #60 tab FLUoxetine HCL [PROzac] 20 mg PO DAILY #30 cap QUEtiapine [SEROquel] 150 mg PO HS #30 tab Discharge Medication List FLUoxetine HCL [PROzac] 20 mg PO DAILY #30 cap 08/23/19 [Rx] QUEtiapine [SEROquel] 150 mg PO HS #30 tab 08/23/19 [Rx] busPIRone HCl [Buspar] 20 mg PO BID #60 tab 08/23/19 [Rx] levETIRAcetam [Keppra] 500 mg PO BID #60 tab 08/23/19 [Rx] traZODone HCL [Desyrel] 50 mg PO HS #30 tab 08/23/19 [Rx] Follow up Appointment(s)/Referral(s): intake,intake [Other] - 08/23/19 12:00 pm (legal coordinator - [facility] will be here at noon. ) Patient Instructions/Handouts: How to Stop Smoking (DC), Depression (DC), Narcotic Use Disorder (DC) Activity/Diet/Wound Care/Special Instructions: Activity and diet as tolerated. Avoid the use of street drugs and alcohol. Take all medications as prescribed. When you are in need of refills on your medications please contact your medical provider and/or outpatient psychiatrist to have this done. Please go to scheduled outpatient appointment for aftercare treatment. If symptoms return or become worse, call the crisis line at and/or go to the nearest emergency room for evaluation. Patient must report to workers' compensation hearings officer once discharged regarding tether. Discharge Disposition: HOME SELF-CARE
== END 2019-08-23 15:25 | disposition home or self-care (01) | DRG 881 ==
LOC: 3MHU 16:57
PROVIDERS: ADMIT Psychiatry & Neurology Psychiatry; ATTEND Psychiatry & Neurology Psychiatry
DX: F32.9 Major depressive disorder, single episode, unspecified (principal); F14.20 Cocaine dependence, uncomplicated; R45.851 Suicidal ideations; F11.20 Opioid dependence, uncomplicated; F15.20 Other stimulant dependence, uncomplicated; G40.909 Epilepsy, unspecified, not intractable, without status epilepticus; F10.10 Alcohol abuse, uncomplicated; F60.3 Borderline personality disorder; Z91.5 Personal history of self-harm; Z56.0 Unemployment, unspecified; Z81.8 Family history of other mental and behavioral disorders; Z91.048 Other nonmedicinal substance allergy status
CPT/HCPCS: 80061; 83036; 84439; 84443

== ENCOUNTER 2019-11-22 19:28 | Emergency (ER) | payer BC ==
--- NOTE | 2019-11-22 19:37 | ED ---
General Adult HPI - General Stated complaint: Overdose Time Seen by Provider: 11/22/19 19:30 - History of Present Illness Initial comments: Dictation was produced using octoScope dictation software. please excuse any grammatical, word or spelling errors. This patient was cared for during a federal and state declared state of emergency secondary to Covid 19 Chief Complaint: 19-year-old female known her when use presents with overdose. History of Present Illness: 19-year-old female is brought in by EMS for heroin overdose. EMS was called for unresponsive patient. She does have strong history of heroin abuse. Patient was initially evaluated by EMS. There was some CPR performed by significant other. She did have a pulse upon EMS arrival. She is given 2 mg of intranasal Narcan with minimal improvement. She was then given 2 mg of IV Narcan with improvement of mental status. Patient has any respiratory distress at this time. She repeatedly says she wants to leave. No other complaints. The ROS documented in this emergency department record has been reviewed and confirmed by me. Those systems with pertinent positive or negative responses have been documented in the HPI. All other systems are other negative and/or no ncontributory. PHYSICAL EXAM: General Impression: Alert and oriented x3, not in acute distress HEENT: Normocephalic atraumatic, extra-ocular movements intact, pupils equal and reactive to light bilaterally, mucous membranes moist. Cardiovascular: Heart regular rate and rhythm Chest: Able to complete full sentences, no retractions, no tachypnea, clear to auscultation bilaterally Abdomen: abdomen soft, non-tender, non-distended, no organomegaly Musculoskeletal: Pulses present and equal in all extremities, no peripheral edema Motor: no focal deficits noted Neurological: CN II-XII grossly intact, no focal motor or sensory deficits noted Skin: Multiple forearm injection sites Psych: Normal affect and mood ED course: 19 yo feel presents with clinical presentation consistent with heroin overdose. His upon arrival are within acceptable limits. According to EMS Narcan was administered at 7:15.X-rays obtained showing no findings to suggest noncardiogenic pulmonary edema. Patient is nonsuicidal and non-homicidal. Denies any visual or auditory hallucinations. Patient wants to sign out AGAINST MEDICAL ADVICE. She is told that she could experience respiratory distress if she is not monitored for 3 hours. Patient told that she could become hypoxic beating to morbidity or mortality secondary to hypoxia. She understands. She is told to return to the emergency department for any worsening symptoms. Risks, Benefits, and Treatment alternatives were discussed in detail with the patient. The patient is alert and oriented X 3 and has the capacity to make an informed decision. The risks of increased morbidity including the possibly of were explained to and understood by the patient who is choosing to leave against medical advice. The patient is encouraged to return any time should they want further treatment and diagnostic investigation. - Related Data Previous Rx's Medication Instructions Recorded FLUoxetine HCL [PROzac] 20 mg PO DAILY #30 cap 08/23/19 QUEtiapine [SEROquel] 150 mg PO HS #30 tab 08/23/19 busPIRone HCl [Buspar] 20 mg PO BID #60 tab 08/23/19 levETIRAcetam [Keppra] 500 mg PO BID #60 tab 08/23/19 traZODone HCL [Desyrel] 50 mg PO HS #30 tab 08/23/19 Allergies Allergy/AdvReac Type Severity Reaction Status Date / Time nickel Allergy Rash/Hives Verified 08/19/19 18:11 Review of Systems ROS Statement: Those systems with pertinent positive or pertinent negative responses have been documented in the HPI. ROS Other: All systems not noted in ROS Statement are negative. Past Medical History Past Medical History: No Reported History Additional Past Medical History / Comment(s): used to be IVDA History of Any Multi-Drug Resistant Organisms: None Reported Past Surgical History: No Surgical Hx Reported Past Anesthesia/Blood Transfusion Reactions: Unable to Obtain Past Drug Use History: Cocaine, Heroin, IV Drug Use, Marijuana, Methamphetamine, Opiates, Prescription Drug Abuse - Past Family History Mother Family Medical History: No Reported History Course Vital Signs 11/22/19 19:31 Temperature 97.9 F Pulse Rate 102 H Respiratory 18 Rate Blood Pressure 142/100 O2 Sat by Pulse 100 Oximetry Disposition Clinical Impression: Heroin overdose Disposition: Left Against Medical Advice Condition: Fair Instructions (If sedation given, give patient instructions): Adult Overdose (ED) Is patient prescribed a controlled substance at d/c from ED?: No Referrals: None,Stated [Primary Care Provider] - 1-2 days Time of Disposition: 19:58
[2019-11-22 19:41] VITALS: BP 142/100; PULSE 102; RESP 18; TEMP 97.9
--- NOTE | 2019-11-22 19:57 | XR ---
EXAMINATION TYPE: XR chest 1V portable DATE OF EXAM: 11/22/2019 COMPARISON: 07/22/2016 HISTORY: Parent overdose TECHNIQUE: Single frontal view of the chest is obtained. FINDINGS: There is no focal air space opacity, pleural effusion, or pneumothorax seen. The cardiac silhouette size is within normal limits. The osseous structures are intact. IMPRESSION: No acute process.
== END 2019-11-22 20:00 | disposition left against medical advice (07) ==
LOC: EC 19:28
DX: T40.1X1A Poisoning by heroin, accidental (unintentional), initial encounter (principal); Z91.048 Other nonmedicinal substance allergy status
CPT/HCPCS: 71045; 99284

== ENCOUNTER 2019-12-04 08:33 | Emergency (ER) | payer BC ==
[2019-12-04 08:41] VITALS: BP 140/109; PULSE 121; RESP 16; TEMP 98.8
--- NOTE | 2019-12-04 08:42 | ED ---
Overdose HPI - General Chief Complaint: Overdose Stated Complaint: Overdose Time Seen by Provider: 12/04/19 08:42 Source: patient, EMS Limitations: no limitations - History of Present Illness Initial Comments: 19-year-old female presenting today for chief complaint of heroin use. Pt brought in by EMS after receiving narcan for a call on heroin overdose. Pt states she does not believe she overdosed. Patient admits to use. Patient AAOx4 on arrival, answering questions appropriately. She is tearful stating someone moved her car. Patient has no current complaints. Stating she just wants to go home. Pt does not appears altered, no decreased RR. Hematoma was noted to forehead and she states that occurred when she bumped her head getting into her care the day before. - Related Data Previous Rx's Medication Instructions Recorded FLUoxetine HCL [PROzac] 20 mg PO DAILY #30 cap 08/23/19 QUEtiapine [SEROquel] 150 mg PO HS #30 tab 08/23/19 busPIRone HCl [Buspar] 20 mg PO BID #60 tab 08/23/19 levETIRAcetam [Keppra] 500 mg PO BID #60 tab 08/23/19 traZODone HCL [Desyrel] 50 mg PO HS #30 tab 08/23/19 Allergies Allergy/AdvReac Type Severity Reaction Status Date / Time nickel Allergy Rash/Hives Verified 08/19/19 18:11 Review of Systems ROS Statement: Those systems with pertinent positive or pertinent negative responses have been documented in the HPI. ROS Other: All systems not noted in ROS Statement are negative. Past Medical History Past Medical History: No Reported History Additional Past Medical History / Comment(s): used to be IVDA History of Any Multi-Drug Resistant Organisms: None Reported Past Surgical History: No Surgical Hx Reported Past Anesthesia/Blood Transfusion Reactions: Unable to Obtain Past Psychological History: Anxiety, Depression Smoking Status: Current every day smoker Past Alcohol Use History: None Reported Past Drug Use History: Cocaine, Heroin, IV Drug Use, Marijuana, Methamphetamine, Opiates, Prescription Drug Abuse - Past Family History Mother Family Medical History: No Reported History General Exam - General Exam Comments Initial Comments: General: The patient is awake and alert, in no distress, and does not appear acutely ill. Eye: Pupils are equal, round and reactive to light, extra-ocular movements are intact. No nystagmus. There is normal conjunctiva bilaterally. No signs of icterus. Ears, nose, mouth and throat: There are moist mucous membranes and no oral lesions. Hematoma to forehead. Neck: The neck is supple, there is no tenderness or JVD. Cardiovascular: There is a regular rate and rhythm. No murmur, rub or gallop is appreciated. Respiratory: Lungs are clear to auscultation, respirations are non-labored, breath sounds are equal. No wheezes, stridor, rales, or rhonchi. Gastrointestinal: Soft, non-distended, non-tender abdomen without masses or organomegaly noted. There is no rebound or guarding present. Musculoskeletal: Normal ROM, no tenderness. Strength 5/5. Sensation intact. Pulses equal bilaterally 2+. Neurological: A&O x 3. CN II-XII intact, There are no obvious motor or sensory deficits. Coordination appears grossly intact. Speech is normal. Skin: Skin is warm and dry and no rashes or lesions are noted. Psychiatric: Cooperative, appropriate mood & affect, normal judgment. Limitations: no limitations Course Vital Signs 12/04/19 08:34 Temperature 98.8 F Pulse Rate 121 H Respiratory 16 Rate Blood Pressure 140/109 O2 Sat by Pulse 99 Oximetry - Reevaluation(s) Reevaluation #1: Refused CT for hematoma, refused work up. Pt AAOx4. No focal deficits noted. Does not appears intoxicated. Medical Decision Making - Medical Decision Making Pt refused treatment, not altered. GCS 15, AAOx4. No respiratory suppression. However recommended monitoring in case of respiratory suppression that is delayed secondary to heroin use.Pt states that she does not want to aware of risk of disability, , worsening condition. left against medical advice without completion of care. Dr. Mcgowan agreeable to care plan. Disposition Clinical Impression: Overdose, Heroin abuse Disposition: Left Against Medical Advice Condition: Undetermined Instructions (If sedation given, give patient instructions): Adult Overdose (ED) Additional Instructions: Please use medication as discussed. Please follow-up with family doctor in the next 2 days. Please return to emergency room if the symptoms increase or worsen or for any other concerns. Is patient prescribed a controlled substance at d/c from ED?: No Referrals: None,Stated [Primary Care Provider] - 1-2 days Time of Disposition: 08:42
== END 2019-12-04 08:48 | disposition left against medical advice (07) ==
LOC: EC 08:33
DX: T40.1X1A Poisoning by heroin, accidental (unintentional), initial encounter (principal); S00.83XA Contusion of other part of head, initial encounter; F17.200 Nicotine dependence, unspecified, uncomplicated; Z53.29 Procedure and treatment not carried out because of patient's decision for other reasons; Z91.048 Other nonmedicinal substance allergy status; W20.8XXA Other cause of strike by thrown, projected or falling object, initial encounter
CPT/HCPCS: 99284

== ENCOUNTER 2020-02-04 15:41 | Emergency (ER) | payer BC ==
[2020-02-04] MEDS ORDERED: SODIUM CHLORIDE 0.9% 1,000 ML IV STA (15:49)
[2020-02-04 15:50] VITALS: RESP 18; TEMP 97.8
[2020-02-04] MEDS ORDERED: METOCLOPRAMIDE 5 MG/ML 2 ML VIAL IVP STA (16:50)
[2020-02-04] MEDS ORDERED: ONDANSETRON 4 MG ODT STARTER PACK 2 TAB BTL PO STA (17:53)
--- NOTE | 2020-02-04 17:53 | ED ---
Nausea/Vomiting/Diarrhea HPI - General Chief complaint: Nausea/Vomiting/Diarrhea Stated complaint: nausea/vomiting Time Seen by Provider: 02/04/20 15:44 Source: patient Mode of arrival: ambulatory Limitations: no limitations - History of Present Illness Initial comments: Patient is a 19-year-old female presenting to the emergency department via EMS with complaints of nausea and vomiting since this morning. Patient states she took some unknown drugs last night and was also drinking. Patient states she did not take any further drugs or alcohol this morning. Patient states she started vomiting a few hours before arrival. She was given Zofran in the EMS and has had no further vomiting episodes. She denies any pain anywhere. She denies any chest pain or shortness of breath. She denies any abdominal pain, she denies being this time. Patient denies any suicidal or homicidal thoughts. She has no further complaints at this time. Upon arrival to the ER, her vital signs are stable. - Related Data Home Medications Medication Instructions Recorded Confirmed No Known Home Medications 02/04/20 02/04/20 Allergies Allergy/AdvReac Type Severity Reaction Status Date / Time nickel Allergy Rash/Hives Verified 02/04/20 17:56 Review of Systems ROS Statement: Those systems with pertinent positive or pertinent negative responses have been documented in the HPI. ROS Other: All systems not noted in ROS Statement are negative. Past Medical History Past Medical History: No Reported History Additional Past Medical History / Comment(s): used to be IVDA History of Any Multi-Drug Resistant Organisms: None Reported Past Surgical History: No Surgical Hx Reported Past Anesthesia/Blood Transfusion Reactions: Unable to Obtain Past Psychological History: Anxiety, Depression Smoking Status: Current some day smoker Past Alcohol Use History: None Reported, Occasional Past Drug Use History: Cocaine, Heroin, IV Drug Use, Marijuana, Methamphetamine, Opiates, Prescription Drug Abuse - Past Family History Mother Family Medical History: No Reported History General Exam - General Exam Comments Initial Comments: GENERAL: Patient is nontoxic and in no acute distress, she has been resting comfortably on the gurney, sleeping in the exam room. Easily arousable. HEAD: Atraumatic, normocephalic. EYES: Pupils equal round and reactive to light, extraocular movements intact, sclera anicteric, conjunctiva are normal. Eyelids were unremarkable. ENT: TMs normal, nares patent, oropharynx clear without exudates. Moist mucous membranes. NECK: Normal range of motion, supple without lymphadenopathy or JVD. LUNGS: Unlabored respirations. Breath sounds clear to auscultation bilaterally and equal. No wheezes rales or rhonchi. HEART: Regular rate and rhythm without murmurs, rubs or gallops. ABDOMEN: Soft, nontender, normoactive bowel sounds. No guarding, no rebound. No masses appreciated. : Deferred MUSCULOSKELETAL: Normal extremities with adequate strength and normal range of motion, no pitting or edema. No clubbing or cyanosis. NEUROLOGICAL: Patient is alert and oriented x 3. Motor and sensory are also intact. Normal speech, normal gait. Symmetrical smile. PSYCH: Normal mood, normal affect. SKIN: Warm, Dry, normal turgor, no rashes or lesions noted. Limitations: no limitations Course Vital Signs 02/04/20 02/04/20 02/04/20 15:46 16:00 18:09 Temperature 97.8 F Pulse Rate 67 99 85 Respiratory 18 18 18 Rate Blood Pressure 122/86 122/86 102/62 O2 Sat by Pulse 98 100 98 Oximetry Medical Decision Making - Medical Decision Making Patient is a 19-year-old female with history of drug abuse, presenting for nausea and vomiting started this morning. She does admit to taking unknown drugs last night as well as drinking last night. She denies any abdominal pain, chest pain, shortness of breath. Her vital signs are stable, her exam is unremarkable. Patient did receive Zofran in the EMS prior to arrival, she's had no active vomiting episodes in the ER. She was given fluids, Reglan. She has been sleeping comfortably during her stay. Her vital signs remained stable. She denies any homicidal suicidal thoughts. She is just requesting to go home and sleep. Patient is stable for discharge. I will send her home with a Zofran starter pack as needed for additional nausea. She is in agreement with this plan of care. Her boyfriend is here to drive her home. Return parameters were discussed with patient and her boyfriend both verbalized understanding. Case discussed with Dr. Moraes. Disposition Clinical Impression: Nausea & vomiting Disposition: HOME SELF-CARE Condition: Stable Instructions (If sedation given, give patient instructions): Acute Nausea and Vomiting (ED) Additional Instructions: Please return to the Emergency Department if symptoms worsen or any other concerns. May take Zofran for additional vomiting or nausea. Do not do illegal drugs. Is patient prescribed a controlled substance at d/c from ED?: No Referrals: Buster Reinoso MD [Primary Care Provider] - 1-2 days
[2020-02-04 18:11] VITALS: BP 102/62; PULSE 85
== END 2020-02-04 18:09 | disposition home or self-care (01) ==
LOC: EC 15:41
DX: R11.2 Nausea with vomiting, unspecified (principal); F17.200 Nicotine dependence, unspecified, uncomplicated; Z91.048 Other nonmedicinal substance allergy status
CPT/HCPCS: 99284; 96374; 96361; J2765; S0119

== ENCOUNTER 2021-01-09 00:01 | Emergency (ER) | payer BC ==
[2021-01-09 00:14] VITALS: BP 105/70; PULSE 94; RESP 18; TEMP 98.2
--- NOTE | 2021-01-09 01:06 | ED ---
Female Urogenital HPI - General Chief complaint: Urogenital Stated complaint: Urogenital Time Seen by Provider: 01/09/21 00:19 Source: patient Mode of arrival: ambulatory - History of Present Illness Initial comments: 20-year-old female presents to emergency Department with chief complaint of a stuck tampon. Patient reports it has been sitting there for approximately 3 days. She reports some dysuria but denies any increased urgency or frequency. States she attempted to remove it, she was unable to. She denies any fevers or chills. Denies nausea vomiting diarrhea. - Related Data Previous Rx's Medication Instructions Recorded Doxycycline Monohydrate [Monodox] 100 mg PO Q12HR #14 cap 01/09/21 Allergies Allergy/AdvReac Type Severity Reaction Status Date / Time nickel Allergy Rash/Hives Verified 01/09/21 00:14 Review of Systems ROS Statement: Those systems with pertinent positive or pertinent negative responses have been documented in the HPI. ROS Other: All systems not noted in ROS Statement are negative. Past Medical History Past Medical History: No Reported History Additional Past Medical History / Comment(s): used to be IVDA History of Any Multi-Drug Resistant Organisms: None Reported Past Surgical History: No Surgical Hx Reported Past Anesthesia/Blood Transfusion Reactions: Unable to Obtain Past Psychological History: Anxiety, Depression Smoking Status: Current some day smoker Past Alcohol Use History: None Reported, Occasional Past Drug Use History: Cocaine, Heroin, IV Drug Use, Marijuana, Methamphetamine, Opiates, Prescription Drug Abuse - Past Family History Mother Family Medical History: No Reported History General Exam Limitations: no limitations General appearance: alert, in no apparent distress Head exam: Present: atraumatic, normocephalic, normal inspection Eye exam: Present: normal appearance Pupils: Present: normal accommodation ENT exam: Present: normal exam, normal oropharynx, mucous membranes moist Neck exam: Present: normal inspection, full ROM. Absent: tenderness Respiratory exam: Present: normal lung sounds bilaterally. Absent: respiratory distress Cardiovascular Exam: Present: regular rate, normal rhythm, normal heart sounds GI/Abdominal exam: Present: soft. Absent: distended, tenderness, guarding, keyla ound, rigid Speculum exam: Present: normal speculum exam, foreign body Extremities exam: Present: normal inspection, full ROM Back exam: Present: normal inspection, full ROM Neurological exam: Present: alert, oriented X3, normal gait Psychiatric exam: Present: normal affect, normal mood Skin exam: Present: warm, dry, intact, normal color Course Vital Signs 01/09/21 00:11 Temperature 98.2 F Pulse Rate 94 Respiratory 18 Rate Blood Pressure 105/70 O2 Sat by Pulse 100 Oximetry Procedures - Procedures Initial comment: Vaginal foreign body, retained tampon, removed with forceps, patient tolerated procedure well Medical Decision Making - Medical Decision Making 20-year-old female presents to emergency Department with chief complaint of retained vaginal foreign body. I was able to remove the tampon with forceps. Patient started procedure well. UA is unremarkable. recommended patient can be started on doxycycline. Strict return primary little thoroughly discussed with patient is a sitting agreeable. Case discussed with physician - Lab Data Lab Results 01/09/21 Range/Units 00:56 Urine Color Yellow Urine Appearance Clear (Clear) Urine pH 6.0 (5.0-8.0) Ur Specific [place] 1.033 (1.001-1.035) Urine Protein Trace H (Negative) Urine Glucose (UA) Negative (Negative) Urine Ketones Trace H (Negative) Urine Blood Moderate H (Negative) Urine Nitrite Negative (Negative) Urine Bilirubin Negative (Negative) Urine Urobilinogen 2.0 (<2.0) mg/dL Ur Leukocyte Esterase Negative (Negative) Urine RBC <1 (0-5) /hpf Urine WBC 1 (0-5) /hpf Ur Squamous Epith Cells 1 (0-4) /hpf Urine Bacteria Rare H (None) /hpf Urine Mucus Moderate H (None) /hpf Disposition Clinical Impression: Vaginal foreign body Disposition: HOME SELF-CARE Condition: Stable Instructions (If sedation given, give patient instructions): Vaginal Foreign Body (ED) Additional Instructions: Please return to the Emergency Department if symptoms worsen or any other concerns. Prescriptions: Doxycycline Monohydrate [Monodox] 100 mg PO Q12HR #14 cap Is patient prescribed a controlled substance at d/c from ED?: No Referrals: Buster Reinoso MD [Primary Care Provider] - 1-2 days Time of Disposition: 01:20
[2021-01-09 01:17] LABS: Appearance,Urine Clear (Clear); Bacteria,Urine Rare /hpf; Bilirubin,Urine Negative (Negative); Blood,Urine Moderate (Negative); Color,Urine Yellow; Glucose,Urine (UA) Negative (Negative); Ketones,Urine Trace (Negative); Leukocyte Esterase,Urine Negative (Negative); Mucus,Urine Moderate /hpf; Nitrite,Urine Negative (Negative); Protein,Urine Trace (Negative); RBC,Urine <1 /hpf (0-5); Specific Gravity,Urine 1.033 (1.001-1.035); Squamous Epithelial Cell,Urine 1 /hpf (0-4); WBC,Urine 1 /hpf (0-5)
== END 2021-01-09 01:25 | disposition home or self-care (01) ==
LOC: EC 00:01
DX: T19.2XXA Foreign body in vulva and vagina, initial encounter (principal); F17.200 Nicotine dependence, unspecified, uncomplicated; F32.9 Major depressive disorder, single episode, unspecified; F12.90 Cannabis use, unspecified, uncomplicated; W45.8XXA Other foreign body or object entering through skin, initial encounter
CPT/HCPCS: 81001; 99283

== ENCOUNTER 2022-05-25 15:48 | Emergency (ER) | payer BC, OTHER ==
[2022-05-25] MEDS ORDERED: SODIUM CHLORIDE 0.9% 1,000 ML IV STA (16:16)
--- NOTE | 2022-05-25 16:22 | ED ---
General Adult HPI - General Chief complaint: Overdose Stated complaint: Overdose Time Seen by Provider: 05/25/22 16:07 Source: patient, police, RN notes reviewed Mode of arrival: ambulatory Limitations: no limitations - History of Present Illness Initial comments: Patient is a 21-year-old female presenting to the emergency room with police escort; she was at the long term after he self turning earlier today and was very lethargic and appeared intoxicated. She advised the staff that she had overdosed on her Seroquel by taking her nighttime dose of 400 mg instead of his her morning dose of 100 mg. She also admits to taking prescription medication of Xanax yesterday which is not prescribed to her and utilizing meth. She reports that the intake of her Seroquel was an accidental overdose and she does report drowsiness. She in addition to her drug abuse history she has a mental health history for anxiety and depression. She has no other significant past medical history. - Related Data Previous Rx's Medication Instructions Recorded Doxycycline Monohydrate [Monodox] 100 mg PO Q12HR #14 cap 01/09/21 Allergies Allergy/AdvReac Type Severity Reaction Status Date / Time nickel Allergy Rash/Hives Verified 05/25/22 15:56 Review of Systems ROS Statement: Those systems with pertinent positive or pertinent negative responses have been documented in the HPI. ROS Other: All systems not noted in ROS Statement are negative. Past Medical History Past Medical History: No Reported History Additional Past Medical History / Comment(s): used to be IVDA History of Any Multi-Drug Resistant Organisms: None Reported Past Surgical History: No Surgical Hx Reported Past Anesthesia/Blood Transfusion Reactions: Unable to Obtain Past Psychological History: Anxiety, Depression Smoking Status: Current some day smoker Past Alcohol Use History: None Reported, Occasional Past Drug Use History: Cocaine, Heroin, IV Drug Use, Marijuana, Methamphetamine, Opiates, Prescription Drug Abuse - Past Family History Mother Family Medical History: No Reported History General Exam General appearance: appears intoxicated, lethargic Head exam: Present: atraumatic, normocephalic, normal inspection Eye exam: Present: normal appearance, PERRL, EOMI. Absent: scleral icterus, conjunctival injection, periorbital swelling ENT exam: Present: normal exam, mucous membranes moist Neck exam: Present: normal inspection, full ROM Respiratory exam: Present: normal lung sounds bilaterally. Absent: respiratory distress, wheezes, rales, rhonchi, stridor Cardiovascular Exam: Present: regular rate, normal rhythm, normal heart sounds. Absent: systolic murmur, diastolic murmur, rubs, gallop, clicks GI/Abdominal exam: Present: soft, normal bowel sounds. Absent: distended, tenderness, guarding, rebound, rigid Extremities exam: Present: normal inspection. Absent: pedal edema, joint swelli ng Back exam: Present: normal inspection Expanded Neurological exam: Present: inattentive, other (slow speech) Patient oriented to: Present: person, place, time Eye Response: (3) open to voice Motor Response: (6) obeys commands Verbal Response: (5) oriented [place] Total: 14 Psychiatric exam: Present: flat affect Skin exam: Present: warm, dry, intact, normal color. Absent: rash Course Vital Signs 05/25/22 05/25/22 05/25/22 15:54 16:19 18:48 Temperature 96.0 F L 97.6 F Pulse Rate 85 80 87 Respiratory 20 18 Rate Blood Pressure 82/61 101/68 108/70 O2 Sat by Pulse 100 100 99 Oximetry Medical Decision Making - Medical Decision Making 23-year-old female presenting to the emergency department with concerns by police that she is in custody of regarding drowsiness and she advised that she had overdosed on her medications. She accidental took her evening dose since her her morning dose of Seroquel causing her to be extra drowsy in addition to her recreational drug use. Vital signs overall stable. Drug consumption of Seroquel accidental and not over a therapeutic recommended dose. Illicit drug consumption not within the last 24 hours. No indication for contacted poison control. Given increased dose of Seroquel intake will check EKG along with CBC, CMP, serum alcohol, Tylenol and salicylates levels and Urine drug screen. Hemodynamically stable however Will give 1L fluid bolus and monitor. EKG shows sinus rhythm with moderate intraventricular delay. CBC reveals low platelet 126 otherwise normal. CMP overall stable, BUN 19 prior to IVF bolus. Serum alcohol acetaminophen and salicylates levels undetectable. Unable to pr ovide urine specimen at this time will discontinue urine drug screen as present with patient reports it is not necessary for return to the long term. No indication for further diagnostic imaging or laboratory studies. Discussed drug duration with and patient and likely return to baseline without further illicit drug consumption. No indication for further monitoring. Will discharge back to [facility] with [employer] escort in stable condition. Case discussed with Dr. Gandhi. - Lab Data Result diagrams: 05/25/22 16:26 05/25/22 16:26 Lab Results 05/25/22 05/25/22 Range/Units 16:26 16:26 WBC 4.1 (3.8-10.6) k/uL RBC 4.14 (3.80-5.40) m/uL Hgb 12.2 (11.4-16.0) gm/dL Hct 35.2 (34.0-46.0) % MCV 84.9 (80.0-100.0) fL MCH 29.4 (25.0-35.0) pg MCHC 34.6 (31.0-37.0) g/dL RDW 12.9 (11.5-15.5) % Plt Count 126 L (150-450) k/uL MPV 10.1 Neutrophils % 58 % Lymphocytes % 31 % Monocytes % 6 % Eosinophils % 2 % Basophils % 1 % Neutrophils # 2.4 (1.3-7.7) k/uL Lymphocytes # 1.3 (1.0-4.8) k/uL Monocytes # 0.2 (0-1.0) k/uL Eosinophils # 0.1 (0-0.7) k/uL Basophils # 0.0 (0-0.2) k/uL Sodium 139 (137-145) mmol/L Potassium 3.8 (3.5-5.1) mmol/L Chloride 107 (98-107) mmol/L Carbon Dioxide 26 (22-30) mmol/L Anion Gap 6 mmol/L BUN 19 H (7-17) mg/dL Creatinine 0.80 (0.52-1.04) mg/dL Est GFR (CKD-EPI)AfAm >90 (>60 ml/min/1.73 sqM) Est GFR (CKD-EPI)NonAf >90 (>60 ml/min/1.73 sqM) Glucose 101 H (74-99) mg/dL Calcium 8.6 (8.4-10.2) mg/dL Total Bilirubin 0.3 (0.2-1.3) mg/dL AST 18 (14-36) U/L ALT 16 (4-34) U/L Alkaline Phosphatase 83 (38-126) U/L Total Protein 6.5 (6.3-8.2) g/dL Albumin 4.1 (3.5-5.0) g/dL Salicylates <1.0 mg/dL Acetaminophen <10.0 ug/mL Serum Alcohol <10 mg/dL - EKG Data EKG Comments: EKG completed at 1610 interpreted by me shows sinus rhythm with moderate intraventricular conduction delay, ventricular rate 79 bpm, GA interval 134 ms, QRS duration 112 ms, QT/QTC 416/450 ms, GA T axes 44, -2, 48 Disposition Clinical Impression: Accidental drug overdose, Polysubstance abuse Disposition: HOME SELF-CARE Condition: Stable Instructions (If sedation given, give patient instructions): Polysubstance Abus e (ED) Additional Instructions: Take medications as prescribed. Do not take medications not prescribed to you. Avoidance of illicit substances encouraged. Please return to the Emergency Department if symptoms worsen or any other concerns. Is patient prescribed a controlled substance at d/c from ED?: No Referrals: Buster Reinoso MD [STAFF PHYSICIAN] - 1-2 days Time of Disposition: 18:13
[2022-05-25 16:39] LABS: Basophils % (A) 1 %; Eosinophils # (A) 0.1 k/uL (0-0.7); Eosinophils % (A) 2 %; HCT 35.2 % (34.0-46.0); HGB 12.2 gm/dL (11.4-16.0); Lymphocytes # (A) 1.3 k/uL (1.0-4.8); Lymphocytes % (A) 31 %; MCH 29.4 pg (25.0-35.0); MCHC 34.6 g/dL (31.0-37.0); MCV 84.9 fL (80.0-100.0); Mean Platelet Volume 10.1; Monocytes # (A) 0.2 k/uL (0-1.0); Monocytes % (A) 6 %; Neutrophils # (A) 2.4 k/uL (1.3-7.7); Neutrophils % (A) 58 %; Platelet Count 126 k/uL (150-450); RBC 4.14 m/uL (3.80-5.40); RDW 12.9 % (11.5-15.5); WBC 4.1 k/uL (3.8-10.6)
[2022-05-25 16:50] LABS: ALT 16 U/L (4-34); AST 18 U/L (14-36); Acetaminophen <10.0 ug/mL; African American GFR (CKD) >90 (>60 ml/min/1.73 sqM); Albumin 4.1 g/dL (3.5-5.0); Alcohol <10 mg/dL; Alkaline Phosphatase 83 U/L (38-126); Anion Gap 6 mmol/L; Blood Urea Nitrogen 19 mg/dL (7-17); Calcium 8.6 mg/dL (8.4-10.2); Carbon Dioxide 26 mmol/L (22-30); Chloride 107 mmol/L (98-107); Glucose 101 mg/dL (74-99); Non-African American GFR(CKD) >90 (>60 ml/min/1.73 sqM); Potassium 3.8 mmol/L (3.5-5.1); Salicylate <1.0 mg/dL; Sodium 139 mmol/L (137-145); Total Bilirubin 0.3 mg/dL (0.2-1.3); Total Protein 6.5 g/dL (6.3-8.2)
[2022-05-25 18:50] VITALS: BP 108/70; PULSE 87; RESP 18; TEMP 97.6
== END 2022-05-25 18:50 | disposition home or self-care (01) ==
LOC: EC 15:48
DX: T43.591A Poisoning by other antipsychotics and neuroleptics, accidental (unintentional), initial encounter (principal); R40.0 Somnolence; F15.10 Other stimulant abuse, uncomplicated; F13.10 Sedative, hypnotic or anxiolytic abuse, uncomplicated; F17.200 Nicotine dependence, unspecified, uncomplicated; Z91.048 Other nonmedicinal substance allergy status; Y92.89 Other specified places as the place of occurrence of the external cause
CPT/HCPCS: 36415; 93005; 80053; 85025; 80143; 80179; 99284; 96360; G0480; 80320

== ENCOUNTER → 2023-05-22 | Outpatient (CLI) | payer OTHER ==
--- NOTE | 2023-05-22 10:07 | US ---
EXAMINATION TYPE: US renal artery duplex complet DATE OF EXAM: 05/22/2023 COMPARISON: NONE CLINICAL INDICATION: Female, 22 years old with history of R03.0 elevated blood pressure reading; Elev ated blood pressure reading in office without diagnosis of hypertension. MEASUREMENTS: RENAL SIZE: Rt Kidney: 10.4 x 5.8 x 3.8 cm Lt Kidney: 10.6 x 6.0 x 4.5 cm RESISTANCE INDEX Right: 0.60 Left: 0.62 RA/AO RATIO (< 3.5 ) Right: 0.9 Left: 1.1 RA VELOCITY ( < 180 cm/s) Right: 104.1 Left: 125.3 No evidence of renal artery stenosis by ultrasound. 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 Additional imaging of right renal artery perfo rmed at end of exam. IMPRESSION: No evidence for renal artery stenosis by ultrasound.
== END | disposition home or self-care (01) ==
LOC: RADUSWWP 06:58
PROVIDERS: ATTEND Family Medicine
DX: R03.0 Elevated blood-pressure reading, without diagnosis of hypertension (principal)
CPT/HCPCS: 93975

== ENCOUNTER → 2023-06-14 | Outpatient (CLI) | payer OTHER ==
--- NOTE | 2023-06-15 07:52 | US ---
EXAMINATION TYPE: US thyroid st tissue head/neck DATE OF EXAM: 06/14/2023 COMPARISON: NONE CLINICAL INDICATION: Female, 22 years old with history of R22.1 neck fullness; nodules. neck fullness GLAND SIZE: Right Lobe: 5.3 x 1.4 x 1.7 cm Overall Parenchyma: homogeneous Left Lobe: 4.8 x 1.1 x 1.5 cm Overall Parenchyma: homogeneous Isthmus Thickness: 0.3 cm NODULES RIGHT: # of nodules measured on right: 0 LEFT: # of nodules measured on left: 1 1. 0.6 X 0.5 x 0.5 cm, mid/lower , solid or almost completely solid, hypoechoic nodule, which is wi vi than tall, with smooth margins, without echogenic foci. Prior size: no prior ISTHMUS: # of nodules measured in the isthmus: 0 Bilateral neck scanned, no evidence of lymphadenopathy. IMPRESSION: Nonspecific subcentimeter nodule left thyroid lobe.
== END | disposition home or self-care (01) ==
LOC: RADUSWWP 16:20
PROVIDERS: ATTEND Family Medicine
DX: E04.1 Nontoxic single thyroid nodule (principal)
CPT/HCPCS: 76536

== ENCOUNTER 2024-04-12 12:48 | Emergency (ER) | payer OTHER ==
[2024-04-12] MEDS: HYDROmorphone 1 MG/ML 1 ML SYRINGE IVP STA ×2 (13:11→15:49)
--- NOTE | 2024-04-12 13:13 | ED ---
General Adult HPI <Marco AJamar - Last Filed: 04/12/24 18:53> - General Source: patient, RN notes reviewed Mode of arrival: wheelchair Limitations: physical limitation <Ruben Moraes - Last Filed: 04/12/24 19:06> - General Chief complaint: Trauma Stated complaint: R Leg Injury Time Seen by Provider: 04/12/24 12:58 - History of Present Illness Initial comments: Patient is a 23-year-old female present to the emergency department with concerns for leg injury. Patient was working on a one-story roof and fell to a dumpster approximately 4 feet. Patient injured her right leg. Patient denies head injury or loss of consciousness. Patient denies neck or back pain. No chest pain or dyspnea. No abdominal pain. Patient has severe discomfort right lower leg and moderate discomfort right mid leg. Tetanus immunization is up-to-date, less than 5 years. Patient denies alcohol or drug use. (Ruben Moraes) - Related Data Previous Rx's Medication Instructions Recorded Doxycycline Monohydrate [Monodox] 100 mg PO Q12HR #14 cap 01/09/21 Cephalexin [Keflex] 500 mg PO QID #28 cap 04/12/24 Allergies Allergy/AdvReac Type Severity Reaction Status Date / Time nickel Allergy Rash/Hives Verified 05/25/22 15:56 Review of Systems ROS Other: All systems not noted in ROS Statement are negative. <Marco AJamar - Last Filed: 04/12/24 18:53> ROS Other: All systems not noted in ROS Statement are negative. Constitutional: Denies: fever Eyes: Denies: eye pain ENT: Denies: ear pain Respiratory: Denies: cough Cardiovascular: Denies: chest pain Endocrine: Denies: fatigue Gastrointestinal: Denies: abdominal pain Genitourinary: Denies: dysuria Musculoskeletal: Reports: as per HPI. Denies: back pain <Ruben Moraes - Last Filed: 04/12/24 19:06> ROS Statement: Those systems with pertinent positive or pertinent negative responses have been documented in the HPI. Past Medical History Past Medical History: No Reported History Additional Past Medical History / Comment(s): used to be IVDA History of Any Multi-Drug Resistant Organisms: None Reported Past Surgical History: No Surgical Hx Reported Past Anesthesia/Blood Transfusion Reactions: Unable to Obtain Past Psychological History: Anxiety, Depression Smoking Status: Current some day smoker Past Alcohol Use History: None Reported, Occasional Past Drug Use History: Cocaine, Heroin, IV Drug Use, Marijuana, Methamphetamine, Opiates, Prescription Drug Abuse - Past Family History Mother Family Medical History: No Reported History <Ruben Moraes - Last Filed: 04/12/24 19:06> General Exam Limitations: physical limitation General appearance: alert, in no apparent distress Head exam: Present: atraumatic Eye exam: Present: normal appearance, PERRL, EOMI ENT exam: Present: normal oropharynx Neck exam: Present: normal inspection, tenderness (Mild tenderness upper cervical spine. Cervical collar is already in place.) Respiratory exam: Present: normal lung sounds bilaterally, chest wall tenderness (Mild chest wall tenderness bilateral lateral ribs) Cardiovascular Exam: Present: regular rate, normal rhythm, normal heart sounds Expanded Peripheral pulses: 2+: Posterior Tibialis (R), Posterior Tibialis (L), Dorsalis Pedis (R), Dorsalis Pedis (L) GI/Abdominal exam: Present: soft, tenderness (Mild tenderness right mid abdomen), normal bowel sounds. Absent: distended, guarding, rebound, rigid, pulsatile mass Extremities exam: Present: tenderness (Severe tenderness right mid tibial region with laceration. Moderate to severe tenderness left distal femur with abrasions. Distal extremities are neurovascular intact) Back exam: Present: tenderness (Minimal tenderness vertebral thoracic lumbar junstion region.) Neurological exam: Present: alert, oriented X3, CN II-XII intact. Absent: motor sensory deficit Expanded Neurological exam: Present: protecting the airway Patient oriented to: Present: person, place, time Speech: Present: fluid speech Cranial nerves: EOM's Intact: Normal Sensory exam: Upper Extremity Light Touch: Normal, Lower Extremity Light Touch: Normal Motor strength exam: RUE: 5, LUE: 5, RLE: 5, LLE: 5 Eye Response: (4) open spontaneously Motor Response: (6) obeys commands Verbal Response: (5) oriented Psychiatric exam: Present: normal affect, normal mood Skin exam: Present: abrasion, other (Right lower leg laceration) <Ruben Moraes - Last Filed: 04/12/24 19:06> Course Vital Signs 04/12/24 04/12/24 04/12/24 12:57 13:15 13:30 Temperature 97.4 F L Pulse Rate 94 77 73 Respiratory 20 14 14 Rate Blood Pressure 133/81 116/86 136/93 O2 Sat by Pulse 100 100 100 Oximetry 04/12/24 04/12/24 04/12/24 13:45 14:30 15:30 Temperature Pulse Rate 74 70 64 Respiratory 14 14 16 Rate Blood Pressure 121/86 126/83 119/80 O2 Sat by Pulse 100 99 97 Oximetry EKG Findings - EKG Results: EKG: interpreted by ERMD (Nonspecific T waves), sinus rhythm, normal axis, normal QRS <Ruben Moraes - Last Filed: 04/12/24 19:06> Procedures - Laceration Laceration #1 Indication: laceration (Deep and wide vertical laceration on right anterior antonio. Small amount of necrotic tissue along wound margins excised) Site: lower extremity Size (cm): 20 Description: irregular, contaminated Depth: involves muscle layer Anesthetic Used: lidocaine 1% Anesthesia Technique: local infiltration Amount (mls): 10 Pre-repair: wound explored, irrigated extensively, deep structures intact, extensive debridement, wound margins revised Type of Sutures: nylon, vicryl Size of Sutures: 4-0 Number of Sutures: 19 (Nylon (15) Vicryl (4)) Technique: simple, interrupted, running, horizontal mattress Complications: pain, bleeding Patient Tolerated Procedure: well Laceration #2 Indication: laceration Site: lower extremity Size (cm): 3 Description: linear, avulsion Depth: involves muscle layer Anesthetic Used: lidocaine 1% Anesthesia Technique: local infiltration Amount (mls): 4 Pre-repair: irrigated extensively, deep structures intact Type of Sutures: nylon Size of Sutures: 5-0 Number of Sutures: 3 Technique: simple, interrupted Patient Tolerated Procedure: well <Jamar Strickland - Last Filed: 04/12/24 18:53> Medical Decision Making - Lab Data Result diagrams: 04/12/24 13:15 04/12/24 13:15 <Jamar Strickland - Last Filed: 04/12/24 18:53> - Lab Data Result diagrams: 04/12/24 13:15 04/12/24 13:15 <Ruben Moraes - Last Filed: 04/12/24 19:06> - Medical Decision Making Was pt. sent in by a medical professional or institution (Dr., PA, [facility] [employer], urgent care, hospital, or shelter...) When possible be specific @ -No Did you speak to anyone other than the patient for history (EMS, parent, family, police, friend...)? What history was obtained from this source @ -EMS provides history of the incident and transportation Did you review nursing and triage notes (agree or disagree)? Why? @ -I reviewed and agree with nursing and triage notes Were old charts reviewed (outside hosp., previous admission, EMS record, old EKG, old radiological studies, urgent care reports/EKG's, shelter records)? Report findings @ -No old charts were reviewed Differential Diagnosis (chest pain, altered mental status, abdominal pain women, abdominal pain men, vaginal bleeding, weakness, fever, dyspnea, syncope, headache, dizziness, GI bleed, back pain, seizure, CVA, palpatations, mental health, musculoskeletal)? @ -Differential Musculoskeletal Muscular strain, contusion, ligament sprain, fracture, arthritis, septic arthritis, bursitis, cellulitis, muscle spasm, nerve compression, DVT, arterial occlusion, herpes zoster, electrolyte abnormality, tumor.... This is not meant to be in all inclusive list EKG interpreted by me (3pts min.). @ -As above X-rays interpreted by me (1pt min.). @ -X-ray bilateral tib-fib and left femur do not show evidence of fracture CT interpreted by me (1pt min.). @ -Brain, C-spine, chest abdomen pelvis without acute traumatic injury U/S interpreted by me (1pt. min.). @ -None done What testing was considered but not performed or refused? (CT, X-rays, U/S, labs)? Why? @ -None What meds were considered but not given or refused? Why? @ -None Did you discuss the management of the patient with other professionals (professionals i.e. STEFANIE Riley, [employer] [employer] [facility], lab, RT, psych nurse, social economist, childrens club attendant, teacher, chief revenue officer, wrapper caser)? Give summary @ -No Was smoking cessation discussed for >3mins.? @ -No Was critical care preformed (if so, how long)? @ -No Were there social determinants of health that impacted care today? How? (Homelessness, low income, unemployed, alcoholism, drug addiction, transpor tation, low edu. Level, literacy, decrease access to med. care, halfway, rehab)? @ -No Was there de-escalation of care discussed even if they declined (Discuss DNR or withdrawal of care, Hospice)? DNR status @ -No What co-morbidities impacted this encounter? (DM, HTN, Smoking, COPD, CAD, Cancer, CVA, ARF, Chemo, Hep., AIDS, mental health diagnosis, sleep apnea, morbid obesity)? @ -None Was patient admitted / discharged? Hospital course, mention meds given and route, prescriptions, significant lab abnormalities, going to OR and other pertinent info. @ -Patient presents with fall with laceration. Evaluation unremarkable. Laceration repaired by practitioner. Patient will be discharged with follow-up. Undiagnosed new problem with uncertain prognosis? @ -No Drug Therapy requiring intensive monitoring for toxicity (Heparin, Nitro, Insulin, Cardizem)? @ -No Were any procedures done? @ -No Diagnosis/symptom? @ -Leg laceration, fall Acute, or Chronic, or Acute on Chronic? @ -Acute, acute Uncomplicated (without systemic symptoms) or Complicated (systemic symptoms)? @ -Default Side effects of treatment? @ -No Exacerbation, Progression, or Severe Exacerbation? @ -No Poses a threat to life or bodily function? How? (Chest pain, [place], [place], pneumonia, PE, COPD, DKA, ARF, appy, cholecystitis, CVA, Diverticulitis, Homicidal, Suicidal, threat to staff... and all critical care pts) @ -No (Ruben Moraes) - Lab Data Lab Results 04/12/24 04/12/24 04/12/24 Range/Units 13:15 13:15 13:15 WBC 4.0 (3.8-10.6) k/uL RBC 4.13 (3.80-5.40) m/uL Hgb 12.7 (11.4-16.0) gm/dL Hct 35.8 (34.0-46.0) % MCV 86.6 (80.0-100.0) fL MCH 30.6 (25.0-35.0) pg MCHC 35.4 (31.0-37.0) g/dL RDW 13.3 (11.5-15.5) % Plt Count 156 (150-450) k/uL MPV 8.9 Neutrophils % 50 % Lymphocytes % 40 % Monocytes % 5 % Eosinophils % 3 % Basophils % 0 % Neutrophils # 2.0 (1.3-7.7) k/uL Lymphocytes # 1.6 (1.0-4.8) k/uL Monocytes # 0.2 (0-1.0) k/uL Eosinophils # 0.1 (0-0.7) k/uL Basophils # 0.0 (0-0.2) k/uL PT 10.9 (10.0-12.5) sec INR 1.0 (<1.2) APTT 25.0 (22.0-30.0) sec Sodium 140 (137-145) mmol/L Potassium 4.2 (3.5-5.1) mmol/L Chloride 109 H (98-107) mmol/L Carbon Dioxide 24 (22-30) mmol/L Anion Gap 7 mmol/L BUN 15 (7-17) mg/dL Creatinine 0.87 (0.52-1.04) mg/dL Est GFR (CKD-EPI)AfAm >90 (>60 ml/min/1.73 sqM) Est GFR (CKD-EPI)NonAf >90 (>60 ml/min/1.73 sqM) Glucose 84 (74-99) mg/dL Calcium 9.0 (8.4-10.2) mg/dL Total Bilirubin 0.7 (0.2-1.3) mg/dL AST 28 (14-36) U/L ALT 20 (4-34) U/L Alkaline Phosphatase 80 (38-126) U/L Total Protein 7.0 (6.3-8.2) g/dL Albumin 4.5 (3.5-5.0) g/dL Urine HCG, Qual (Not Detectd) Urine Opiates Screen (NotDetected) Ur Oxycodone Screen (NotDetected) Urine Methadone Screen (NotDetected) Ur Barbiturates Screen (NotDetected) U Tricyclic Antidepress (NotDetected) Ur Phencyclidine Scrn (NotDetected) Ur Amphetamines Screen (NotDetected) U Methamphetamines Scrn (NotDetected) U Benzodiazepines Scrn (NotDetected) Urine Cocaine Screen (NotDetected) U Marijuana (THC) Screen (NotDetected) Serum Alcohol <10 mg/dL 10/11/24 10/11/24 Range/Units 16:02 16:02 WBC (3.8-10.6) k/uL RBC (3.80-5.40) m/uL Hgb (11.4-16.0) gm/dL Hct (34.0-46.0) % MCV (80.0-100.0) fL MCH (25.0-35.0) pg MCHC (31.0-37.0) g/dL RDW (11.5-15.5) % Plt Count (150-450) k/uL MPV Neutrophils % % Lymphocytes % % Monocytes % % Eosinophils % % Basophils % % Neutrophils # (1.3-7.7) k/uL Lymphocytes # (1.0-4.8) k/uL Monocytes # (0-1.0) k/uL Eosinophils # (0-0.7) k/uL Basophils # (0-0.2) k/uL PT (10.0-12.5) sec INR (<1.2) APTT (22.0-30.0) sec Sodium (137-145) mmol/L Potassium (3.5-5.1) mmol/L Chloride (98-107) mmol/L Carbon Dioxide (22-30) mmol/L Anion Gap mmol/L BUN (7-17) mg/dL Creatinine (0.52-1.04) mg/dL Est GFR (CKD-EPI)AfAm (>60 ml/min/1.73 sqM) Est GFR (CKD-EPI)NonAf (>60 ml/min/1.73 sqM) Glucose (74-99) mg/dL Calcium (8.4-10.2) mg/dL Total Bilirubin (0.2-1.3) mg/dL AST (14-36) U/L ALT (4-34) U/L Alkaline Phosphatase (38-126) U/L Total Protein (6.3-8.2) g/dL Albumin (3.5-5.0) g/dL Urine HCG, Qual Not Detected (Not Detectd) Urine Opiates Screen Detected H (NotDetected) Ur Oxycodone Screen Not Detected (NotDetected) Urine Methadone Screen Not Detected (NotDetected) Ur Barbiturates Screen Not Detected (NotDetected) U Tricyclic Antidepress Not Detected (NotDetected) Ur Phencyclidine Scrn Not Detected (NotDetected) Ur Amphetamines Screen Detected H (NotDetected) U Methamphetamines Scrn Detected H (NotDetected) U Benzodiazepines Scrn Detected H (NotDetected) Urine Cocaine Screen Not Detected (NotDetected) U Marijuana (THC) Screen Detected H (NotDetected) Serum Alcohol mg/dL Disposition <Jamar Strickland - Last Filed: 04/12/24 18:53> Is patient prescribed a controlled substance at d/c from ED?: No Time of Disposition: 19:06 <Ruben Moraes - Last Filed: 04/12/24 19:06> Clinical Impression: Fall, Leg laceration Disposition: HOME SELF-CARE Condition: Stable Instructions (If sedation given, give patient instructions): Laceration (ED), Care For Your Stitches (ED), Fall Prevention (ED) Additional Instructions: Prescription for antibiotics sent to pharmacy. Please do follow-up with primary care physician in the next couple of days for recheck. Suture removal in 12 days. Return for increased pain, swelling, redness, drainage, worsening or changing symptoms or any other concerns. Twice daily wash area with soap and water, apply antibiotic ointment, and keep bandaged Prescriptions: Cephalexin [Keflex] 500 mg PO QID #28 cap Referrals: Kanika Gamez MD [Primary Care Provider] - 1-2 days
[2024-04-12] MEDS: SODIUM CHLORIDE 0.9% 1,000 ML IV STA (13:14)
[2024-04-12 13:23] LABS: Basophils % (A) 0 %; Eosinophils # (A) 0.1 k/uL (0-0.7); Eosinophils % (A) 3 %; HCT 35.8 % (34.0-46.0); HGB 12.7 gm/dL (11.4-16.0); Lymphocytes # (A) 1.6 k/uL (1.0-4.8); Lymphocytes % (A) 40 %; MCH 30.6 pg (25.0-35.0); MCHC 35.4 g/dL (31.0-37.0); MCV 86.6 fL (80.0-100.0); Mean Platelet Volume 8.9; Monocytes # (A) 0.2 k/uL (0-1.0); Monocytes % (A) 5 %; Neutrophils % (A) 50 %; Platelet Count 156 k/uL (150-450); RBC 4.13 m/uL (3.80-5.40); RDW 13.3 % (11.5-15.5)
[2024-04-12 13:34] LABS: Prothrombin Time 10.9 sec (10.0-12.5)
[2024-04-12 13:37] LABS: ALT 20 U/L (4-34); AST 28 U/L (14-36); African American GFR (CKD) >90 (>60 ml/min/1.73 sqM); Albumin 4.5 g/dL (3.5-5.0); Alcohol <10 mg/dL; Alkaline Phosphatase 80 U/L (38-126); Anion Gap 7 mmol/L; Blood Urea Nitrogen 15 mg/dL (7-17); Carbon Dioxide 24 mmol/L (22-30); Chloride 109 mmol/L (98-107); Glucose 84 mg/dL (74-99); Non-African American GFR(CKD) >90 (>60 ml/min/1.73 sqM); Potassium 4.2 mmol/L (3.5-5.1); Sodium 140 mmol/L (137-145); Total Bilirubin 0.7 mg/dL (0.2-1.3)
--- NOTE | 2024-04-12 14:16 | CT ---
EXAMINATION TYPE: CT ChestAbdPelvis w con DATE OF EXAM: 04/12/2024 COMPARISON: None HISTORY: fell off a roof CT DLP: 2091 mGycm Automated exposure control for dose reduction was used. CONTRAST: CT scan of the chest, abdomen and pelvis is performed without Oral Contrast and with IV Contrast, pat ient injected with 100 mL of Isovue 370. FINDINGS: CT chest: There is no suspicious lung mass or nodule. There is no abnormal airspace/consolidative density or abnormal interstitial density. There is no pleural effusion, pleural thickening or pneumothorax. The great vessels and chest are normal there is no mediastinal, hilar or axillary adenopathy. No focal osseous lesions are seen. CT abdomen and pelvis: Gallbladder is normal without distention, pericholecystic fluid, wall thickening or gallstone. There is no biliary ductal dilatation. There is no focal mass or organomegaly involving the liver, pancreas, spleen or adrenal glands.. There is no solid renal mass or hydronephrosis. There is no retroperitoneal adenopathy or hemorrhage in the caliber of the abdominal aorta is normal. The bowel loops are normal in caliber and there is no dilatation or obstruction. No inflammatory jordan ges identified in the bowel wall and mesentery. There is no free intracranial air or fluid. There is no pelvic mass or adenopathy. There is no free fluid within the pelvis. No focal osseous lesions are seen. Soft tissue the abdomen and pelvis are normal. IMPRESSION: No significant abnormality seen. [facility], , 04/12/2024 2:13 PM
--- NOTE | 2024-04-12 14:17 | CT ---
EXAMINATION TYPE: CT brain cspine wo con CT DLP: 1011.6 mGycm, Automated exposure control for dose reduction was used. DATE OF EXAM: 04/12/2024 2:05 PM COMPARISON: None.. CLINICAL INDICATION:Female, 23 years old with history of trauma; fell off roof TECHNIQUE: Brain: Multiple axial CT images of the brain were obtained without IV contrast. Cspine: Axial CT images from the skull base to the inferior aspect of T2 we obtained without intraven ous contrast. Coronal and sagittal reformatted images were also reviewed. FINDINGS: Brain: Extra-axial spaces: No abnormal extra-axial fluid collections. Ventricular system: Within normal limits Cerebral parenchyma: No acute intraparenchymal hemorrhage or mass effect. The gage-white junction is well differentiated. Cerebellum: Unremarkable. Mass effect: No evidence of midline shift. Intracranial vasculature: unremarkable Soft tissues: Normal. Calvarium/osseous structures: No depressed skull fracture. Paranasal sinuses and mastoid air cells: Clear. Visualized orbits: Orbital contents are intact. Cervical spine: Fracture: None. Osseous structures: Unremarkable Vertebral alignment: Within normal limits. Spinal canal/Neural Foramina: No evidence of significant spinal canal narrowing. No evidence for sign ificant neural foraminal stenosis. Neck soft tissues: Prevertebral soft tissues are within normal limits. Other: The airway is patent. Please refer to dedicated CT chest abdomen pelvis of same day for findin gs. IMPRESSION: 1. No acute intracranial process. 2. No evidence of cervical spine fracture. [facility], , 04/12/2024 2:15 PM
--- NOTE | 2024-04-12 15:27 | XR ---
Left femur. HISTORY: Fall from roof. COMPARISON: None. TECHNIQUE: 4 views left femur were obtained. FINDINGS: There is no fracture, dislocation, intraosseous or intra-articular abnormality. There are no soft tis dolores abnormalities including no radiopaque foreign body. IMPRESSION: No significant abnormality seen. [facility] , 04/12/2024 3:25 PM
--- NOTE | 2024-04-12 15:29 | XR ---
Right and left tibia and fibula HISTORY: Fall from roof. COMPARISON: None TECHNIQUE: 8 views of the right tibia and fibula were obtained. FINDINGS: There is no fracture or focal intraosseous abnormality. There is no cortical disruption or periosteal reaction. The soft tissues are unremarkable there is no radiopaque foreign body. IMPRESSION: No significant abnormality seen. [facility], Workstation: [email or web address], 04/12/2024 3:27 PM
[2024-04-12] MEDS: LIDOCAINE 1% INJ 10MG/ML (20 ML MDV) SQ ONE (16:38)
[2024-04-12 16:42] LABS: Amphetamine Screen,Urine Detected (NotDetected); Barbiturate Screen,Urine Not Detected (NotDetected); Benzodiazepines Screen,Urine Detected (NotDetected); Cocaine Screen,Urine Not Detected (NotDetected); Methadone Screen, Urine Not Detected (NotDetected); Opiate Screen,Urine Detected (NotDetected); Oxycodone Screen, Urine Not Detected (NotDetected); Phencyclidine Screen,Urine Not Detected (NotDetected); Tricyclic Antidepressant,Urine Not Detected (NotDetected); Urn Cannabinoid Scrn Detected (NotDetected)
[2024-04-12] MEDS: HYDROmorphone 0.5 MG/0.5 ML SYRINGE IVP STA ×2 (17:07→18:12)
[2024-04-12 19:23] VITALS: BP 114/71; PULSE 48; RESP 17; TEMP 97.9
== END 2024-04-12 19:22 | disposition home or self-care (01) ==
LOC: EC 12:48
CPT/HCPCS: 36415; 70450; 71260; 72125; 74177; 80053; 80306; 80320; 81025; 85025; 85610; 85730; 93005; 96361; 96365; 96375; 96376; 99284